=== PATIENT | male | born 2000 | race Caucasian/White ===

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

== ENCOUNTER 2018-02-14 20:44 | Emergency (ER) | payer OTHER ==
--- OUTSIDE RECORDS SUMMARY | 2018-02-14 20:46 | XMS REPORT ---
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, disorder of MODERATE childhood with hyperactivity ANXIETY Active Edda Anxiety state, DISORDER, / Musa DHILLON unspecified UNSPECIFIED AUTISM Active Heavental SPECTRUM / Musa DHILLON DISORDER Medication List Medication Instructions Start Stop Generic NDC Status Provider Patient Date Date Name Instruction DEPAKOTE ER 1 By DIVALPROEX SODIUM [id number] Active Shetal Active 500 MG ORAL Mouth Vigil TABLET QHS EXTENDED RELEASE 24 HOUR CONCERTA 36 take 1 METHYLPHENIDATE 17988894202 Active Shetal Active MG ORAL By Mouth HCL Musa DHILLON TABLET daily EXTENDED RELEASE LEXAPRO 20 1 By ESCITALOPRAM [id number] Active Shetal Active MG ORAL Mouth OXALATE Musa DHILLON TABLET daily SEROQUEL take 1 QUETIAPINE 21249463225 Active Shetal Active 100 MG ORAL tab BID FUMARATE Vigil MD TABLET DEPAKOTE 1 tab By DEPAKOTE DIVALPROEX SODIUM Inactive ER 500 MG Mouth daily ER 500 MG ORAL and 1 tab ORAL TABLET QHS TABLET EXTENDED EXTENDED RELEASE RELEASE 24 HOUR 24 HOUR RITALIN 1 By Mouth RITALIN [id number] METHYLPHENIDATE Inactive 20 MG Qafternoon 20 MG HCL ORAL ORAL TABLET TABLET INTUNIV 3 1 By Mouth INTUNIV 3 GUANFACINE HCL Inactive MG ORAL daily MG ORAL TABLET TABLET EXTENDED EXTENDED RELEASE RELEASE 24 HOUR 24 HOUR VYVANSE 1 By Mouth VYVANSE LISDEXAMFETAMINE Inactive 60 MG daily 60 MG DIMESYLATE ORAL ORAL CAPSULE CAPSULE DEPAKOTE 1 tab By DIVALPROEX [id number] No Shetal Active ER 500 MG Mouth SODIUM Longer Musa DHILLON ORAL daily Active TABLET and 1 EXTENDED tab QHS RELEASE 24 HOUR RITALIN 1 By METHYLPHENID [id number] No Shetal Active 20 MG Mouth ATE HCL Longer Musa DHILLON ORAL Qafterno Active TABLET on INTUNIV 3 1 By GUANFACINE [id number] No Shetal Active MG ORAL Mouth HCL Longer Vigil MD TABLET daily Active EXTENDED RELEASE 24 HOUR VYVANSE 1 By LISDEXAMFETA [id number] No Shetal Active 60 MG Mouth MINE Longer Musa DHILLON ORAL daily DIMESYLATE Active CAPSULE Vital Signs Date Name Value Unit Range Description blood pressure, diastolic 78 mm[Hg] BP gregory blood pressure, systolic 122 mm[Hg] BP sys height E&M 68 [in_us] Bdy height pulse rate E&M 90 /min Heart rate weight E&M 135 [lb_av] Weight Measured blood pressure, diastolic 76 mm[Hg] BP gregory blood pressure, systolic 114 mm[Hg] BP sys height E&M 68 [in_us] Bdy height pulse rate E&M 76 /min Heart rate weight E&M 131 [lb_av] Weight Measured blood pressure, diastolic 70 mm[Hg] BP gregory blood pressure, systolic 114 mm[Hg] BP sys height E&M 68 [in_us] Bdy height pulse rate E&M 78 /min Heart rate weight E&M 133 [lb_av] Weight Measured blood pressure, diastolic 70 mm[Hg] BP gregory [...] rate weight E&M 155.60 [lb_av] Weight Measured Diagnostic Results Date Name Value Unit Range Description Lab Report: CBC With Differential/Platelet, Comp. Metabolic Panel (14), ... - Hematology hematocrit, blood 36.0 % 37.5-51.0 Lab Report: CBC With Differential/Platelet, Comp. Metabolic Panel (14), ... - Chemistry sodium, serum 142 mmol/L 134-144 Lab Report: CBC With Differential/Platelet, Comp. Metabolic Panel (14), ... - Hematology neutrophils as percent of blood leukocytes 43 % basophils as percent of blood leukocytes 1 % Lab Report: CBC With Differential/Platelet, Comp. Metabolic Panel (14), ... - Chemistry very low density lipoproteins 13 mg/dL 5-40 carbon dioxide, venous blood 27 mmol/L 18-29 chloride, serum 102 mmol/L 97-108 triglyceride, serum, fasting 64 mg/dL 0-89 calcium, serum 9.0 mg/dL 8.9-10.4 urea nitrogen, blood 16 mg/dL 5-18 alanine aminotransferase (SGPT), serum 14 U/L 0-30 Lab Report: CBC With Differential/Platelet, Comp. Metabolic Panel (14), ... - Hematology mean corpuscular hemoglobin, RBC 28.0 pg 26.6-33.0 mean corpuscular hemoglobin concentration, RBC 33.9 G/DL % 31.5- 35.7 Lab Report: CBC With Differential/Platelet, Comp. Metabolic Panel (14), ... - Chemistry protein, total, serum 6.7 g/dL 6.0-8.5 alkaline phosphatase, serum 177 U/L 61-146 Lab Report: CBC With Differential/Platelet, Comp. Metabolic Panel (14), ... - Hematology erythrocyte (RBC) count 4.35 X10E6/UL 10*6/mm3 4.14-5.80 hemoglobin, blood 12.2 g/dL 12.6-17.7 Lab Report: CBC With Differential/Platelet, Comp. Metabolic Panel (14), ... - Chemistry Absolute Neutrophils 1.8 X10E3/UL 10*3/uL 1.4-7.0 LDL cholesterol, serum 55 mg/dL 0-109 urea nitrogen/creatinine ratio, serum 21 9-27 Lab Report: CBC With Differential/Platelet, Comp. Metabolic Panel (14), ... - Hematology lymphocytes as percent of blood leukocytes 41 % mean corpuscular volume, RBC 83 fL 79-97 Lab Report: CBC With Differential/Platelet, Comp. Metabolic Panel (14), ... - Chemistry HDL cholesterol, serum 64 mg/dL >39 Lab Report: CBC With Differential/Platelet, Comp. Metabolic Panel (14), ... - Hematology basophil count, absolute 0.1 x10E3/uL 0.0-0.3 monocytes as percent of blood leukocytes 13 % Lab Report: CBC With Differential/Platelet, Comp. Metabolic Panel (14), ... - Chemistry globulin, serum 2.4 1.5-4.5 creatinine, serum 0.75 mg/dL 0.76-1.27 albumin/globulin ratio, serum 1.8 1.1-2.5 cholesterol, serum 132 mg/dL 216-677 3755/10/03 bilirubin, serum, total 0.3 mg/dL 0.0-1.2 Lab Report: CBC With Differential/Platelet, Comp. Metabolic Panel (14), ... - Hematology Eosinophil Absolute Count 0.1 X10E3/UL 10*3/uL 0.0-0.4 eosinophils as percent of blood leukocytes 2 % Lab Report: CBC With Differential/Platelet, Comp. Metabolic Panel (14), ... - Chemistry blood glucose, random 80 mg/dL 65-99 aspartate aminotransferase (SGOT), serum 20 U/L 0-40 Lab Report: CBC With Differential/Platelet, Comp. Metabolic Panel (14), ... - Hematology red blood cell distribution width 14.3 % 12.3-15.4 leukocyte count, blood 4.2 X10E3/UL 10*3/mm3 3.4-10.8 Lab Report: CBC With Differential/Platelet, Comp. Metabolic Panel (14), ... - Chemistry potassium, serum 4.3 mmol/L 3.5-5.2 Lab Report: CBC With Differential/Platelet, Comp. Metabolic Panel (14), ... - Hematology monocyte count, blood, automated 0.5 X10E3/UL 10*3/uL 0.1-0.9 Lab Report: CBC With Differential/Platelet, Comp. Metabolic Panel (14), ... - Chemistry immature granulocytes, percentage of total cells, blood 0 % albumin, serum 4.3 g/dL 3.5-5.5 Lab Report: CBC With Differential/Platelet, Comp. Metabolic Panel (14), ... - Hematology platelet count 145 X10E3/UL 10*3/mm3 648-369 5152/10/03 lymphocyte count, blood, automated 1.7 X10E3/UL 10*3/mm3 0.7- 3.1 Lab Report: CBC With Differential/Platelet, Comp. Metabolic Panel (14), ... 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 Problem - 88377 Health Est Patient Detailed Edda Vigil MD CPT-63918 [facility] 07:57:10 CDT - 92214 Health Est Patient Detailed Edda Vigil MD CPT-83297 [facility] 16:19:08 CDT - 28042 Health Est Patient Detailed Edda Vigil MD CPT-92498 [facility] 07:26:45 CDT - 43056 Health Est Patient Exp Edda Vigil MD CPT-23512 [facility] 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 Problem - 90828 Health Est Patient Exp Edda Vigil MD CPT-56851 [facility] 15:47:22 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 Problem - 46861 Health Est Patient Exp Edda Vigil MD CPT-38452 [facility] 12:17:41 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 Problem - 62124 Health Est Patient Exp Edda Vigil MD CPT-06780 [facility] 22:23:36 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 Problem - 64979 Health Est Patient Detailed Edda Vigil MD CPT-67494 [facility] 09:37:59 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 - 40599 Health Est Patient Detailed Edda Vigil MD CPT-28597 [facility] 10:01:54 CDT - 42164 Health Est Patient Detailed Edda Vigil MD CPT-70488 [facility] 12:21:40 CDT - 57151 Health Est Patient Detailed Edda Vigil MD CPT-65344 [facility] 23:34:34 CDT - 48672 Health Est Patient Detailed Edda Vigil MD CPT-35340 [facility] 00:12:02 CDT - 45735 Health Est Patient Detailed Edda Vigil MD CPT-53994 [facility] 10:34:46 CDT - 00589 Health Est Patient Detailed Edda Vigil MD CPT-33682 [facility] 11:55:57 [facility] - [address] Health Procedures Code Procedure Name Date Entry Date Standard Description CPT-49584 Psychotherapy with E/M 30 (16-37) min - 05813(with 16:19:08 CDT patient and/or family member) CPT-86463 Diagnostic evaluation with medical - 46991 16:27:03 CDT
--- OUTSIDE RECORDS SUMMARY | 2018-02-14 20:46 | XMS REPORT | Clinical Summary ---
:2000 Author Organization [facility] Address [address] [place] [address] Care Team Providers Name Role Phone Cody Feliciano MD Primary Care Provider Allergies No Known Allergies Medications Medication Sig Dispensed Refills Start Date End Date Status divalproex (DEPAKOTE) 500 Take 500 mg by 0 Active MG EC tablet mouth 2 (two) times a day. 2 tablets (1000 mg) in morning and 1 tablet (500 mg) pm lisdexamfetamine Take 60 mg by 0 Active (VYVANSE) 60 MG capsule mouth every morning. escitalopram (LEXAPRO) 20 Take 20 mg by 0 Active MG tablet mouth daily. QUEtiapine (SEROquel) 100 Take 100 mg by 0 Active MG tablet mouth 2 (two) times a day. Takes 150 mg in the morning and 200 mg at bedtime Active Problems No known active problems Social History Tobacco Use Types Packs/Day Years Used Date Never Smoker Smokeless Tobacco: Never Used Alcohol Use Drinks/Week oz/Week Comments No Sex Assigned at Date Recorded Not on file Job Start Date Occupation Industry Not on file Not on file Not on file Travel History Travel Start Travel End No recent travel history available. Last Filed Vital Signs Not on file Plan of Treatment Health Maintenance Due Date Last Done Comments MMR VACCINES (1 of 1 - Standard 09/15/1999 series) VARICELLA VACCINES (1 of 2 - 2-dose 09/15/2011 adolescent series) MENINGOCOCCAL VACCINE (1 - 2-dose 2014 series) INFLUENZA VACCINE 11/01/2017 HEPATITIS B VACCINES Aged Out No longer eligible based on patient's age to complete this topic IPV VACCINES Aged Out No longer eligible based on patient's age to complete this topic Results Not on fileafter 02/13/2017 Insurance Payer Benefit Plan / Group Subscriber ID Type Phone Address MEDICAID MEDICAID xxxxxxxxx Medicaid Advance Directives Patient has advance care planning documents on file. For more information, please contact:Dean [id number] [place] [address]
--- OUTSIDE RECORDS SUMMARY | 2018-02-14 20:46 | XMS REPORT | Clinical Summary ---
:2000 Author Organization [facility] Address [address] [place] [address] Care Team Providers Name Role Phone Cody Feliciano MD Primary Care Provider Unavailable Allergies No Known Allergies Medications Medication Sig Dispensed Refills Start Date End Date Status lisdexamfetamine (VYVANSE) Take 60 mg by 0 Active 60 MG capsule mouth every morning. QUEtiapine (SEROQUEL) 200 Take 200 mg by 0 Active MG tablet mouth nightly. escitalopram oxalate Take 20 mg by 0 Active (LEXAPRO) 20 MG tablet mouth. guanFACINE (INTUNIV ER) 4 Take by mouth. 0 Active mg Tb24 QUEtiapine (SEROQUEL) 25 Take 25 mg by 0 Active MG tablet mouth. Active Problems Not on file Social History Tobacco Use Types Packs/Day Years Used Date Never Smoker Alcohol Use Drinks/Week oz/Week Comments No Sex Assigned at Date Recorded Not on file Job Start Date Occupation Industry Not on file Not on file Not on file Travel History Travel Start Travel End No recent travel history available. Last Filed Vital Signs Not on file Plan of Treatment Not on file Results Not on fileafter 02/13/2017 Insurance Payer Benefit Plan / Group Subscriber ID Type Phone Address MEDICAID MEDICAID [place] xxxxxxxxx Medicaid
--- NOTE | 2018-02-14 23:52 | ER ---
Nurse's Notes [facility] Name: Sean Hoover Age: 17 yrs Sex: Male : 2000 Arrival Date: 02/14/2018 Time: 20:54 Bed 7 Private MD: None, None Diagnosis: Unspecified injury of head Presentation: 02/14 21:02 Presenting complaint: Patient states: Reports being hit in right side of head with tire aj iron while at work. 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 Denies LOC. Report headache. Care prior to arrival: None. Mechanism of Injury: blunt trauma. Trauma event details: Injury occurred in the [facility], Injury occurred: in a public building. Injury occurred: February 12, 2018. 21:02 Acuity: ROCKY 4 aj 21:02 Method Of Arrival: EMS: [facility] aj 23:47 Transition of care: patient was not received from another setting of care. Onset of tl2 symptoms was February 13, 2018. Risk Assessment: Do you want to hurt yourself or someone else? Patient reports no desire to harm self or others. Initial Sepsis Screen: Does the patient meet any 2 criteria? No. Patient's initial sepsis screen is negative. Does the patient have a suspected source of infection? No. Patient's initial sepsis screen is negative. Trauma Activation: Not Applicable Physician: ED Physician; Name: ; Notified At: ; Arrived At: Physician: General Surgeon; Name: ; Notified At: ; Arrived At: Physician: Radiology; Name: ; Notified At: ; Arrived At: Physician: Respiratory; Name: ; Notified At: ; Arrived At: Physician: Lab; Name: ; Notified At: ; Arrived At: Historical: - Allergies: 21:04 No Known Allergies; aj - Home Meds: 21:04 Concerta 72 mg Oral tr24 1 tab once daily [Active]; Depakote 500 mg Oral TbEC 1 tab aj once daily [Active]; Lexapro 20 mg Oral tab 1 tab once daily [Active]; Seroquel 100 mg Oral tab 1 tab nightly [Active]; - PMHx: 21:04 ADD/ADHD; Anxiety; Autism; mood disorder; aj - PSHx: 21:04 Appendectomy; aj - Immunization history: Last tetanus immunization: unknown. - Social history:: Smoking status: Patient/guardian denies using tobacco. - Ebola Screening: : Patient negative for fever greater than or equal to 101.5 degrees Fahrenheit, and additional compatible Ebola Virus Disease symptoms Patient denies exposure to infectious person Patient denies travel to an Ebola-affected area in the 21 days before illness onset No symptoms or risks identified at this time. Screenin:41 Abuse screen: Denies threats or abuse. Nutritional screening: No deficits noted. tl2 Tuberculosis screening: No symptoms or risk factors identified. Fall Risk None identified. Primary Survey: 21:04 A: Airway: patent. Breathing/Chest: Respiratory pattern: regular, Respiratory effort: aj spontaneous, unlabored. Circulation: Skin color: pink, Skin temperature: warm, dry. Disability Alert. Assessment: 21:02 General: Appears in no apparent distress. comfortable, Behavior is calm, cooperative, aj appropriate for age. Pain: Complains of pain in right frontal area. Neuro: Level of Consciousness is awake, alert, obeys commands, Oriented to person, place, time, situation, Appropriate for age Reports headache. Respiratory: Airway is patent Respiratory effort is even, unlabored, Respiratory pattern is regular, symmetrical. Derm: Skin is intact, is healthy with good turgor, Skin is pink, warm \T\ dry. normal. 23:41 General: Appears in no apparent distress. comfortable, Behavior is calm, cooperative, tl2 appropriate for age, drowsy. Pain: Complains of pain in right frontal area. Neuro: Level of Consciousness is awake, alert, obeys commands, Oriented to person, place, time, situation. Respiratory: Airway is patent Respiratory effort is even, unlabored, Respiratory pattern is regular, symmetrical. GI: No signs and/or symptoms were reported involving the gastrointestinal system. : No signs and/or symptoms were reported regarding the genitourinary system. Derm: Skin is pink, warm \T\ dry. 02/15 00:02 Reassessment: [id number]. tl2 00:18 Reassessment: Patient appears in no apparent distress at this time. Patient and/or tl2 family updated on plan of care and expected duration. Pain level reassessed. Patient is alert, oriented x 3, equal unlabored respirations, skin warm/dry/pink. Pt verbalized understanding of discharge instructions, need for follow up. Pt AOx3 and ambulatory out of ER. Vital Signs: 02/14 21:04 BP 112 / 71; Pulse 62; Resp 19; Temp 99.1; Pulse Ox 100% on R/A; Weight 58.97 kg; aj Height 5 ft. 9 in. (175.26 cm); 23:41 BP 105 / 65; Pulse 56; Resp 18; Pulse Ox 100% on R/A; tl2 21:04 Body Mass Index 19.20 (58.97 kg, 175.26 cm) aj Henry Coma Score: 21:04 Eye Response: spontaneous(4). Verbal Response: oriented(5). Motor Response: obeys aj commands(6). Total: 15. 23:56 Eye Response: spontaneous(4). Verbal Response: oriented(5). Motor Response: obeys snw commands(6). Total: 15. 23:57 Eye Response: spontaneous(4). Verbal Response: oriented(5). Motor Response: obeys snw commands(6). Total: 15. Trauma Score (Adult): 21:04 Eye Response: spontaneous(1); Verbal Response: oriented(1); Motor Response: obeys aj commands(2); Systolic BP: > 89 mm Hg(4); Respiratory Rate: 10 to 29 per min(4); Herndon Score: 15; Trauma Score: 12 ED Course: 20:54 Patient arrived in ED. mr 20:54 None, None is Private Physician. mr 21:03 Triage completed. aj 21:05 Arm band placed on right wrist. Patient placed in waiting room, Patient notified of wait time. 21:20 [facility] Sykes [facility]C [facility] snw 21:20 Eliel Calvo MD is Attending Physician. snw 22:13 CT Head C Spine In Process Unspecified. EDMS 23:18 Devi Kirkland, PANFILO is Primary Nurse. aa1 23:41 Patient has correct armband on for positive identification. Bed in low position. Call tl2 light in reach. Side rails up X 1. 23:41 No provider procedures requiring assistance completed. tl2 23:46 Thermoregulation: warm blanket given to patient. tl2 02/15 00:18 Patient did not have IV access during this emergency room visit. tl2 Administered Medications: No medications were administered Outcome: 02/14 23:51 Discharge ordered by . snw 02/15 00:18 Discharged to home ambulatory. tl2 Condition: stable Discharge instructions given to patient, Instructed on discharge instructions, follow up and referral plans. Demonstrated understanding of instructions, follow-up care. 00:20 Patient left the ED. tl2 Signatures: Dispatcher [employer] Devi Corona RN Shawna Morrison RN Jayashree Walls, DRYWALL APPLICATOR-C DRYWALL APPLICATOR-Lyubov Sophia Hager Taylor, RN RN tl2
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
[2018-02-15 02:22] VITALS: TEMP 99.1; O2SAT 100
[2018-02-15 02:23] VITALS: BP 105/65
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
== END 2018-02-15 00:20 | disposition home or self-care (01) ==
LOC: ER 20:44
DX: S09.90XA Unspecified injury of head, initial encounter (principal); W22.8XXA Striking against or struck by other objects, initial encounter; Y93.9 Activity, unspecified; Y92.89 Other specified places as the place of occurrence of the external cause; F41.9 Anxiety disorder, unspecified; F90.9 Attention-deficit hyperactivity disorder, unspecified type; F39 Unspecified mood [affective] disorder
CPT/HCPCS: 70450; 72125; 99283

== ENCOUNTER 2018-06-23 17:56 | Emergency (ER) | payer OTHER ==
--- OUTSIDE RECORDS SUMMARY | 2018-06-23 17:59 | XMS REPORT | Clinical Summary ---
:2000 Author Organization [facility] Address [address] [place] [address] Care Team Providers Name Role Phone Cody [...] Health Maintenance Due Date Last Done Comments INFLUENZA VACCINE 11/01/2017 Results Not on fileafter 06/22/2017 Insurance Payer Benefit Plan / Group Subscriber ID Type Phone Address MEDICAID MEDICAID xxxxxxxxx Medicaid Advance Directives Patient has advance care planning documents on file. For more information, please contact:[address] [address]
--- OUTSIDE RECORDS SUMMARY | 2018-06-23 17:59 | XMS REPORT ---
:2000 Author Organization [facility] Address [address] [place] [phone] Phone Allergies, Adverse Reactions, Alerts Allergy Name [...] Instruction DEPAKOTE ER 1 By DIVALPROEX SODIUM [id number] Active Shetal Active 500 MG ORAL Mouth Vigil TABLET QHS EXTENDED RELEASE 24 HOUR CONCERTA 36 take 1 METHYLPHENIDATE 10366721968 Active Shetal Active MG ORAL By Mouth HCL Musa DHILLON TABLET daily EXTENDED RELEASE LEXAPRO 20 1 By ESCITALOPRAM [id number] Active Shetal Active MG ORAL Mouth OXALATE Musa DHILLON TABLET daily SEROQUEL take 1 QUETIAPINE 71046670815 Active Shetal Active 100 MG ORAL tab BID FUMARATE Vigil MD TABLET DEPAKOTE 1 tab By DEPAKOTE DIVALPROEX SODIUM Inactive ER 500 MG Mouth daily ER 500 MG ORAL and 1 tab ORAL TABLET QHS TABLET EXTENDED EXTENDED RELEASE RELEASE 24 HOUR 24 HOUR RITALIN 1 By Mouth RITALIN [id number] METHYLPHENIDATE Inactive 20 MG Qafternoon 20 MG HCL ORAL ORAL TABLET TABLET INTUNIV 3 1 By Mouth INTUNIV 3 GUANFACINE HCL Inactive MG ORAL daily MG ORAL TABLET TABLET EXTENDED EXTENDED RELEASE RELEASE 24 HOUR 24 HOUR VYVANSE 1 By Mouth VYVANSE LISDEXAMFETAMINE Inactive 60 MG daily 60 MG DIMESYLATE ORAL ORAL CAPSULE CAPSULE DEPAKOTE 1 tab By DIVALPROEX [id number] No Shetal Active ER 500 MG Mouth SODIUM Longer Musa DHILLON ORAL daily Active TABLET and 1 EXTENDED tab QHS RELEASE 24 HOUR RITALIN 1 By METHYLPHENID [id number] No Shetal Active 20 MG Mouth ATE HCL Longer Musa DHILLON ORAL Qafterno Active TABLET on INTUNIV 3 1 By GUANFACINE [id number] No Shetal Active MG ORAL Mouth HCL Longer Vigil MD TABLET daily Active EXTENDED RELEASE 24 HOUR VYVANSE 1 By LISDEXAMFETA [id number] No Shetal Active 60 MG Mouth MINE [...] rate weight E&M 138 [lb_av] Weight Measured Diagnostic Results Date Name [...] ... - Chemistry globulin, serum 2.4 1.5-4.5 albumin/globulin ratio, serum 1.8 1.1-2.5 creatinine, serum 0.75 mg/dL 0.76-1.27 cholesterol, serum 132 mg/dL [phone]/10/03 bilirubin, serum, total 0.3 mg/dL 0.0-1.2 Lab [...] Comp. Metabolic Panel (14), ... - Chemistry albumin, serum 4.3 g/dL 3.5-5.5 immature granulocytes, percentage of total cells, blood 0 % Lab Report: CBC With Differential/Platelet, Comp. Metabolic Panel (14), ... - Hematology platelet count 145 X10E3/UL 10*3/mm3 070-035 3529/10/03 lymphocyte count, blood, automated 1.7 X10E3/UL 10*3/mm3 0.7- 3.1 Lab Report: CBC With Differential/Platelet, Comp. Metabolic Panel (14), ... - Toxicology valproic acid, serum 110 ug/mL 50-100 Encounters Date Encounter Provider Code Facility Est Patient Exp Edda Vigil MD CPT-37263 [facility] 16:33:11 CDT Problem - 02244 Health Est Patient Detailed Edda Vigil MD CPT-77193 [facility] 11:11:09 CDT - 55043 Health Est Patient Detailed Edda Vigil MD CPT-69974 [facility] 05:48:16 CDT - 73432 Health Est Patient Exp Edda Vigil MD CPT-02723 [facility] 10:34:46 ACCESS ANALYST Problem - 55998 Health Est Patient Detailed Edda Vigil MD CPT-22626 [facility] 07:57:10 CDT - 72511 Health Est Patient Detailed Edda Vigil MD CPT-37095 [facility] 16:19:08 CDT - 66572 Health Est Patient Detailed Edda Vigil MD CPT-56822 [facility] 07:26:45 CDT - 80973 Health Est Patient Exp Edda Vigil MD CPT-16052 [facility] 06:49:36 ACCESS ANALYST Problem - 00746 Health Est Patient Exp Edda Vigil MD CPT-02070 [facility] 15:47:22 ACCESS ANALYST Problem - 64924 Health Est Patient Exp Edda Viigl MD CPT-45120 [facility] 12:17:41 ACCESS ANALYST Problem - 52658 [facility] Est Patient Exp Edda Vigil MD CPT-16399 [facility] 22:23:36 ACCESS ANALYST Problem - 57721 [facility] Est Patient Detailed Edda Vigil MD CPT-47913 [facility] 09:37:59 ACCESS ANALYST - 44220 [facility] Est Patient Detailed Edda Vigil MD CPT-99079 [facility] 10:01:54 CDT - 83877 [facility] Est Patient Detailed Edda Vigil MD CPT-04173 [facility] 12:21:40 CDT - 93554 [facility] Est Patient Detailed Edda Vigil MD CPT-91780 [facility] 23:34:34 CDT - 89644 [facility] Est Patient Detailed Edda Vigil MD CPT-63083 [facility] 00:12:02 CDT - 21103 [facility] Est Patient Detailed Edda Vigil MD CPT-32571 [facility] 10:34:46 CDT - 52410 [facility] Est Patient Detailed Edda Vigil MD CPT-04896 [facility] 11:55:57 CDT - 15061 Health Procedures Code Procedure Name Date Entry Date Standard Description CPT-52490 Psychotherapy with E/M 30 (16-37) min - 26416(with 16:19:08 CDT patient and/or family member) CPT-86419 Diagnostic evaluation with [facility] - 29058 16:27:03 CDT
--- OUTSIDE RECORDS SUMMARY | 2018-06-23 17:59 | XMS REPORT | Clinical Summary ---
:2000 Author Organization [facility] Address [address] [place] [address] Care Team Providers Name Role Phone Cody [...] Not on file Results Not on fileafter 06/22/2017 Insurance Payer Benefit Plan / Group Subscriber ID Type Phone Address MEDICAID MEDICAID [place] xxxxxxxxx Medicaid
[2018-06-23] MEDS ORDERED: DOXYCYCLINE 100 MG CAP PO ONE (18:57)
--- NOTE | 2018-06-23 19:27 | EDPHYS ---
Physician Documentation [facility] Name: Sean Hoover Age: 17 yrs Sex: Male : 2000 Arrival Date: 06/23/2018 Time: 17:59 Bed 23 Private MD: ED Physician Eliel Calvo HPI: 06/23 18:43 This 17 yrs old Male presents to ER via Ambulatory with complaints of kb Laceration To Hand. 18:43 The patient has a laceration related to: falling into oyster bed occurred outdoors, and kb there are no complicating factors. The injury was accidental. The laceration(s) is(are) located on the lateral aspect of left thigh and Left first web space. Onset: The symptoms/episode began/occurred just prior to arrival. Associated signs and symptoms: The patient has no apparent associated signs or symptoms. The patient has not experienced similar symptoms in the past. The patient has not recently seen a physician. Historical: - Allergies: 18:09 No Known Allergies; la1 - PMHx: 18:09 ADD/ADHD; Anxiety; Autism; mood disorder; la1 - PSHx: 18:51 None; rv - Immunization history:: Adult Immunizations up to date. - Social history:: Smoking status: Patient/guardian denies using tobacco. - Ebola Screening: : No symptoms or risks identified at this time. ROS: 18:40 Constitutional: Negative for fever, chills, and weight loss, Cardiovascular: Negative kb for chest pain, palpitations, and edema, Respiratory: Negative for shortness of breath, cough, wheezing, and pleuritic chest pain, Abdomen/GI: Negative for abdominal pain, nausea, vomiting, diarrhea, and constipation, MS/Extremity: Negative for injury and deformity, Neuro: Negative for headache, weakness, numbness, tingling, and seizure. 18:40 Skin: Positive for laceration(s), of the Left first web space and lateral aspect of left thigh. Exam: 18:42 Constitutional: This is a well developed, well nourished patient who is awake, alert, kb and in no acute distress. Head/Face: Normocephalic, atraumatic. Chest/axilla: Normal chest wall appearance and motion. Nontender with no deformity. No lesions are appreciated. Cardiovascular: Regular rate and rhythm with a normal S1 and S2. No gallops, murmurs, or rubs. Normal PMI, no JVD. No pulse deficits. Respiratory: Lungs have equal breath sounds bilaterally, clear to auscultation and percussion. No rales, rhonchi or wheezes noted. No increased work of breathing, no retractions or nasal flaring. Abdomen/GI: Soft, non-tender, with normal bowel sounds. No distension or tympany. No guarding or rebound. No evidence of tenderness throughout. MS/ Extremity: Pulses equal, no cyanosis. Neurovascular intact. Full, normal range of motion. Neuro: Awake and alert, GCS 15, oriented to person, place, time, and situation. Cranial nerves II-XII grossly intact. Motor strength 5/5 in all extremities. Sensory grossly intact. Cerebellar exam normal. Normal gait. 18:42 Skin: injury, abrasion(s), moderate sized abrasion noted, of the lateral aspect of left thigh, laceration(s), the wound is approximately 3 cm(s), of the Left first web space, that can be described as clean, no foreign body, linear, without bleeding. Vital Signs: 18:10 BP 116 / 75; Pulse 70; Resp 18; Temp 97.5; Pulse Ox 100% on R/A; Weight 68.04 kg; la1 Height 6 ft. 0 in. (182.88 cm); 18:10 Body Mass Index 20.34 (68.04 kg, 182.88 cm) la1 Laceration: 19:24 Wound Repair of 3cm ( 1.2in ) subcutaneous laceration to Left first web space. Linear kb shaped.. Distal neuro/vascular/tendon intact. Anesthesia: Wound infiltrated with 3 mls of 1% lidocaine. Wound prep: Extensive cleansing with hibiclenz by ne, Wound irrigation with saline by ne. Skin closed with 5 5-0 Prolene using interrupted sutures and sterile technique. Dressed with Neosporin, 4x4's. Patient tolerated well. MDM: 18:34 Patient medically screened. kb 18:42 Data reviewed: vital signs, nurses notes. Data interpreted: Pulse oximetry: on room air kb is 100 %. Interpretation: normal. 19:24 Counseling: I had a detailed discussion with the patient and/or guardian regarding: the kb historical points, exam findings, and any diagnostic results supporting the discharge/admit diagnosis, the need for outpatient follow up, a family practitioner, to return to the emergency department if symptoms worsen or persist or if there are any questions or concerns that arise at home. 06/23 18:37 Order name: Prolene, Sutures; Complete Time: 18:47 kb 06/23 18:37 Order name: Dressing - Wound; Complete Time: 18:47 kb 06/23 18:37 Order name: Gloves, Sterile; Complete Time: 18:47 kb 06/23 18:37 Order name: Setup Suture Tray; Complete Time: 18:47 kb Administered Medications: 18:40 Drug: Lidocaine (1 %) 1 vials Volume: 5 ml; Route: Infiltration; ss 18:47 Drug: Doxycycline 100 mg Route: PO; rv 19:20 Follow up: Response: No adverse reaction rv Disposition: 06/23/18 19:26 Discharged to Home. Impression: Laceration without foreign body of left hand, Abrasion of lower leg. - Condition is Stable. - Discharge Instructions: Laceration Care, Adult, [id number]. - Prescriptions for Doxycycline Hyclate 100 mg Oral Tablet - take 1 tablet by ORAL route every 12 hours; 20 tablet. - Medication Reconciliation Form, Thank You Letter, Antibiotic Education, Prescription Opioid Use form. - Follow up: Emergency Department; When: As needed; Reason: Worsening of condition. Follow up: Private Physician; When: 2 - 3 days; Reason: Recheck today's complaints, Continuance of care, Re-evaluation by your physician. - Notes: Have sutures removed in 10-14 days Addendum: 06/27/2018 21:54 Co-signature as Attending Physician, Eliel Calvo MD. g s Signatures: Clover Rueda, ASSISTANT FIELD HOCKEY COACH-C SAWYER-Tracy Swanson RN RN ss Attema, Lee RN RN la1 Eliel Calvo MD MD gs Vicente, Ronaldo, RN RN rv Corrections: (The following items were deleted from the chart) 06/23 19:24 18:42 Skin: injury, abrasion(s), moderate sized abrasion noted, of the lateral aspect kb of left thigh, laceration(s), the wound is approximately 2 cm(s), of the Left first web space, that can be described as clean, no foreign body, linear, without bleeding, kb 19:35 19:26 06/23/2018 19:26 Discharged to Home. Impression: Laceration without foreign body rv of left hand; Abrasion of lower leg. Condition is Stable. Forms are Medication Reconciliation Form, Thank You Letter, Antibiotic Education, Prescription Opioid Use. Follow up: Emergency Department; When: As needed; Reason: Worsening of condition. Follow up: Private Physician; When: 2 - 3 days; Reason: Recheck today's complaints, Continuance of care, Re-evaluation by your physician. kb
--- NOTE | 2018-06-23 19:27 | ER ---
Nurse's Notes [facility] Name: Sean Hoover Age: 17 yrs Sex: Male : 2000 Arrival Date: 06/23/2018 Time: 17:59 Bed 23 [facility] MD: Diagnosis: Laceration without foreign body of left hand;Abrasion of lower leg Presentation: 06/23 18:08 Presenting complaint: Patient states: I fell on to some oysters in to the salt water la1 while I was trying get a bobber. Transition of care: patient was not received from another setting of care. Complicating Factors: There are no complicating factors for this patient. Onset of symptoms was June 23, 2018. Risk Assessment: Do you want to hurt yourself or someone else? Patient reports no desire to harm self or others. Initial Sepsis Screen: Does the patient meet any 2 criteria? No. Patient's initial sepsis screen is negative. Does the patient have a suspected source of infection? No. Patient's initial sepsis screen is negative. Care prior to arrival: None. 18:08 Method Of Arrival: Ambulatory la1 18:08 Acuity: ROCKY 4 la1 Historical: - Allergies: 18:09 No Known Allergies; la1 - PMHx: 18:09 ADD/ADHD; Anxiety; Autism; mood disorder; la1 - PSHx: 18:51 None; rv - Immunization history:: Adult Immunizations up to date. - Social history:: Smoking status: Patient/guardian denies using tobacco. - Ebola Screening: : No symptoms or risks identified at this time. Screenin:51 Abuse screen: Denies threats or abuse. Denies injuries from another. Nutritional rv screening: No deficits noted. Tuberculosis screening: No symptoms or risk factors identified. Fall Risk None identified. Assessment: 18:47 General: Appears in no apparent distress. comfortable, Behavior is calm, cooperative. rv Pain: Complains of pain in left hand. Neuro: Level of Consciousness is awake, alert, obeys commands, Oriented to person, place, time, situation. Cardiovascular: Capillary refill < 3 seconds. Respiratory: Airway is patent. GI: No signs and/or symptoms were reported involving the gastrointestinal system. : No signs and/or symptoms were reported regarding the genitourinary system. EENT: No signs and/or symptoms were reported regarding the EENT system. Derm: Wound noted Left first web space. Musculoskeletal: Reports pain in left hand. Injury Description: Laceration sustained to Left first web space is clean, jagged, 2.6 to 7.5 cm long, not bleeding. Vital Signs: 18:10 BP 116 / 75; Pulse 70; Resp 18; Temp 97.5; Pulse Ox 100% on R/A; Weight 68.04 kg; la1 Height 6 ft. 0 in. (182.88 cm); 18:10 Body Mass Index 20.34 (68.04 kg, 182.88 cm) la1 ED Course: 17:59 Patient arrived in ED. mr 18:09 Triage completed. la1 18:09 Arm band placed on left wrist. la1 18:34 [facility]C [facility] kb 18:34 Eliel Calvo MD is Attending Physician. kb 18:50 Patient did not have IV access during this emergency room visit. Wound care: to rv laceration located on Left first web space was cleaned with Hibiclens, irrigated with normal saline, dressed with 4X4s, Patient tolerated well. 18:51 Patient has correct armband on for positive identification. Bed in low position. Call rv light in reach. Side rails up X 1. Adult w/ patient. Pulse ox on. NIBP on. 19:20 Assist provider with chest tube insertion Assist provider with laceration repair on rv Left first web space that was between 2.6 to 7.5 cm using sutures. Set up tray. Performed by Clover BARKER Dressed with 4X4s, Patient tolerated well. Administered Medications: 18:40 Drug: Lidocaine (1 %) 1 vials Volume: 5 ml; Route: Infiltration; ss 18:47 Drug: Doxycycline 100 mg Route: PO; rv 19:20 Follow up: Response: No adverse reaction rv Outcome: 19:21 Discharged to home ambulatory. rv 19:21 Condition: good 19:26 Discharge ordered by . kb 19:35 Discharge instructions given to patient, family, Instructed on discharge instructions, rv follow up and referral plans. medication usage, Demonstrated understanding of instructions, follow-up care, medications, Prescriptions given X 1. 19:35 Patient left the ED. rv Signatures: Clover Rueda FNP-C FNP-Ckb Sophia Hager Shelby, RN RN ss Juan R Montoya, RN RN la1 Christian, Richard, RN RN rv
[2018-06-23 20:13] VITALS: BP 116/75; TEMP 97.5; O2SAT 100
== END 2018-06-23 19:35 | disposition home or self-care (01) ==
LOC: ER 17:56
PROC: 0JQK0ZZ Repair Left Hand Subcutaneous Tissue and Fascia, Open Approach (ICD-10-PCS; principal; 2018-06-23)
DX: S61.412A Laceration without foreign body of left hand, initial encounter (principal); S80.812A Abrasion, left lower leg, initial encounter; W18.39XA Other fall on same level, initial encounter; Y93.89 Activity, other specified; Y92.89 Other specified places as the place of occurrence of the external cause
CPT/HCPCS: 99285

== ENCOUNTER 2019-11-24 09:23 | Emergency (ER) | payer OTHER, SELFPAY ==
--- OUTSIDE RECORDS SUMMARY | 2019-11-24 09:25 | XMS REPORT | Clinical Summary ---
:2000 Author Organization [facility] Address [address] [place] [address] Care Team Providers Name Role Phone Cody Feliciano MD Primary Care Provider Unavailabl e Allergies No Known Allergies Medications Medication Sig [...] Not on file Results Not on fileafter 11/23/2018 Insurance Payer Benefit Plan / Group Subscriber ID Type Phone [facility] MEDICAID MEDICAID OF [place] xxxxxxxxx Medicaid
--- OUTSIDE RECORDS SUMMARY | 2019-11-24 09:25 | XMS REPORT | Clinical Summary ---
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
--- OUTSIDE RECORDS SUMMARY | 2019-11-24 09:26 | XMS REPORT | Continuity of Care Document ---
:2000 Author Organization [facility] t Address [address] [place] [address] Care Team Providers Name Role Phone Braden DHILLON, H. Primary Care Physician Problems This patient has no known problems. Allergies, Adverse Reactions, Alerts This patient has no known allergies or adverse reactions. Social History Social Habit Start Date Stop Date Quantity Comments Source Sex Assigned At [facility] Alcohol intake 2015-12-22 2015-12-22 [facility] non-drinker of alcohol (finding) Smoking Status Start Date Stop Date Source Never smoker [facility] Medications Ordered Filled Start Stop Current Ordering Indication Dosage Frequency Signature Comments Components Source Medication Medication Date Date Medication? Clinician (SIG) Name Name divalproex Yes 500mg Q.5D Take 500 [place] (DEPAKOTE) 9-18 mg by Methodi 500 MG EC 03:04: mouth 2 st tablet 24 (two) times a day. 2 tablets (1000 mg) in morning and 1 tablet (500 mg) pm lisdexamfet Yes 60mg QD Take 60 mg [facility] amine 9-18 by mouth [facility]i (VYVANSE) 03:04: every st 60 MG 24 morning. capsule escitalopra Yes 20mg QD Take 20 mg Moran m (LEXAPRO) 9-18 by mouth Meth miryam 20 MG 03:04: daily. st tablet 24 QUEtiapine Yes 100mg Q.5D Take 100 [place] (SEROquel) 9-18 mg by [facility] 100 MG 03:04: mouth 2 st tablet 24 (two) times a day. Takes 150 mg in the morning and 200 mg at bedtime QUEtiapine Yes 25mg Take [address] (SEROQUEL) 8-20 by mouth. Luke s - 25 MG 12:32: Medical tablet 37 [place] escitalopra Yes 20mg Take [address] [facility] oxalate 8-20 by [facility] - (LEXAPRO) 12:32: Medical 20 MG 36 [place] tablet guanFACINE Yes Take by [facility] (INTUNIV 8-20 mouth. [facility] - ER) 4 mg 12:32: Medical Tb24 36 [place] lisdexamfet Yes 60mg QD Take [address] [facility] [address] amine 7-09 by mouth [facility] - (VYVANSE) 20:59: every Medical 60 MG 54 morning. [place] capsule QUEtiapine Yes 200mg QD Take [address] (SEROQUEL) 7-09 mg by [facility] - 200 MG 20:59: mouth Medical tablet 54 nightly. Center Procedures This patient has no known procedures. Plan of Care Planned Activity Planned Date Details Comments Source Future Scheduled 2020-01-02 INFLUENZA VACCINE Rhea Nguyen Test 00:00:00 [code = INFLUENZA VACCINE] Results This patient has no known results.
[2019-11-24] MEDS ORDERED: DOXYCYCLINE 100 MG CAP PO ONE (10:02)
[2019-11-24] MEDS ORDERED: SMZ./TMP. 800/160 MG TABLET ONE (10:02)
[2019-11-24] MEDS ORDERED: MUPIROCIN 2% OINT 22GM TUBE TOP ONE (10:03)
--- NOTE | 2019-11-24 10:49 | RAD REPORT ---
EXAM DESCRIPTION: RAD - Hand Right 3 View - 11/24/2019 10:29 am CLINICAL HISTORY: Right hand pain status post injury FINDINGS: No fracture or dislocation is seen. No radiopaque foreign body. No bony destructive lesion
--- NOTE | 2019-11-24 11:01 | EDPHYS ---
Physician Documentation [facility] Name: Sean Hoover Age: 19 yrs Sex: Male : 2000 Arrival Date: 11/24/2019 Time: 09:25 Bed 19 Private MD: SONAM Physician Samson Bullock HPI: 11/23 09:59 This 19 yrs old Male presents to ER via Ambulatory with complaints of vinicio Abscess, Wound Check. 09:59 The patient presents with an abscess of the dorsal aspect of distal phalanx of right vinicio thumb and right arm, The patient presents with cellulitis of the dorsal aspect of distal phalanx of right thumb. Description: The affected area is small, confluent, erythematous, fluctuant. Onset: The symptoms/episode began/occurred 2 day(s) ago. Associated signs and symptoms: The patient has no apparent associated signs or symptoms. Severity of symptoms: At their worst the symptoms were mild, yesterday. The patient has not experienced similar symptoms in the past, also wound right anterior tibia/villanueva. Historical: - Allergies: 09:38 No Known Allergies; aa5 - PMHx: 09:38 ADD/ADHD; Anxiety; Autism; mood disorder; aa5 - PSHx: 09:38 None; aa5 - Immunization history:: Last tetanus immunization: < 5 years ago. - Social history:: Smoking status: Patient denies any tobacco usage or history of. - Family history:: not pertinent. ROS: 09:59 Constitutional: Negative for fever, chills, and weight loss, Eyes: Negative for injury, vinicio pain, redness, and discharge, ENT: Negative for injury, pain, and discharge, Neck: Negative for injury, pain, and swelling, Cardiovascular: Negative for chest pain, palpitations, and edema, Respiratory: Negative for shortness of breath, cough, wheezing, and pleuritic chest pain, Abdomen/GI: Negative for abdominal pain, nausea, vomiting, diarrhea, and constipation, Back: Negative for injury and pain, : Negative for injury, bleeding, discharge, and swelling, Skin: Negative for injury, rash, and discoloration, Neuro: Negative for headache, weakness, numbness, tingling, and seizure, Psych: Negative for depression, anxiety, suicide ideation, homicidal ideation, and hallucinations, Allergy/Immunology: Negative for hives, rash, and allergies, Endocrine: Negative for neck swelling, polydipsia, polyuria, polyphagia, and marked weight changes, Hematologic/Lymphatic: Negative for swollen nodes, abnormal bleeding, and unusual bruising. 09:59 MS/extremity: Positive for decreased range of motion, pain, swelling, tenderness, of the dorsal aspect of distal phalanx of right thumb, right villanueva, deep wound 1 cm , no abscess, no dc. Exam: 09:59 Constitutional: This is a well developed, well nourished patient who is awake, alert, vinicio and in no acute distress. Head/Face: Normocephalic, atraumatic. Eyes: Pupils equal round and reactive to light, extra-ocular motions intact. Lids and lashes normal. Conjunctiva and sclera are non-icteric and not injected. Cornea within normal limits. Periorbital areas with no swelling, redness, or edema. ENT: Nares patent. No nasal discharge, no septal abnormalities noted. Tympanic membranes are normal and external auditory canals are clear. Oropharynx with no redness, swelling, or masses, exudates, or evidence of obstruction, uvula midline. Mucous membranes moist. Neck: Trachea midline, no thyromegaly or masses palpated, and no cervical lymphadenopathy. Supple, full range of motion without nuchal rigidity, or vertebral point tenderness. No Meningismus. Chest/axilla: Normal chest wall appearance and motion. Nontender with no deformity. No lesions are appreciated. Cardiovascular: Regular rate and rhythm with a normal S1 and S2. No gallops, murmurs, or rubs. Normal PMI, no JVD. No pulse deficits. Respiratory: Lungs have equal breath sounds bilaterally, clear to auscultation and percussion. No rales, rhonchi or wheezes noted. No increased work of breathing, no retractions or nasal flaring. Abdomen/GI: Soft, non-tender, with normal bowel sounds. No distension or tympany. No guarding or rebound. No evidence of tenderness throughout. Back: No spinal tenderness. No costovertebral tenderness. Full range of motion. Male : Normal genitalia with no discharge or lesions. Skin: Warm, dry with normal turgor. Normal color with no rashes, no lesions, and no evidence of cellulitis. Neuro: Awake and alert, GCS 15, oriented to person, place, time, and situation. Cranial nerves II-XII grossly intact. Motor strength 5/5 in all extremities. Sensory grossly intact. Cerebellar exam normal. Normal gait. Psych: Awake, alert, with orientation to person, place and time. Behavior, mood, and affect are within normal limits. 09:59 Musculoskeletal/extremity: ROM: limited active range of motion due to pain, limited passive range of motion due to pain, in the dorsal aspect of distal phalanx of right thumb, dorsal aspect of proximal phalanx of right thumb, palmar aspect of distal phalanx of right thumb and palmar aspect of proximal phalanx of right thumb, Circulation is intact in all extremities. Sensation intact. Compartment Syndrome exam of affected extremity: is normal. DVT Exam: negative Homans' sign noted on exam, no appreciated bluish discoloration, no erythema, pain, swelling, tenderness, erythema, that is mild, of the dorsal aspect of distal phalanx of right thumb. Vital Signs: 09:38 BP 122 / 73; Pulse 60; Resp 16 S; Temp 98.7(O); Pulse Ox 100% on R/A; Pain 5/10; aa5 11:30 BP 111 / 87; Pulse 64; Resp 15 S; Pulse Ox 100% on R/A; ca1 Procedures: 09:59 I \T\ D: Incision and drainage was performed for an abscess of the right Prepped with [facility] Betadine, Anesthetized with 2 ml's 1% Lidocaine. Incised with #11 blade. Drained small amount. Splinting: Splint applied to dorsal aspect of distal phalanx of right thumb using bulky dress. applied by nurse. bulky dress. MDM: 09:41 Patient medically screened. [facility] 09:59 Data reviewed: vital signs, nurses notes, radiologic studies, plain films. Data [facility] interpreted: surveillance system monitor: not applicable for this patient encounter. rate is 60 beats/min, rhythm is regular, Pulse oximetry: on room air is 100 %. Test interpretation: by ED physician or midlevel provider: plain radiologic studies. Counseling: I had a detailed discussion with the patient and/or guardian regarding: the historical points, exam findings, and any diagnostic results supporting the discharge/admit diagnosis, lab results, the need for outpatient follow up, for definitive care, a hand specialist. ED course: explained importance of hand doc follow up. 10:59 Differential diagnosis: abscess, cellulitis. ED course: close follow advised, pt will vinicio do. 11/23 09:58 Order name: Hand Right 3 View XRAY [facility] 11/23 09:45 Order name: Wound dressing; Complete Time: 09:50 aa5 11/23 10:09 Order name: Dressing - Wound; Complete Time: 11:21 [facility] 11/23 10:09 Order name: Gloves, Sterile; Complete Time: 11:21 [facility] 11/23 10:09 Order name: Setup Suture Tray; Complete Time: : [facility] Administered Medications: 10:00 Drug: Bactroban Ointment 2 % 1 application {Note: administered to right villanueva and right aa5 thumb .} Route: Topical; Site: wound; 10:00 Drug: Doxycycline 200 mg Route: PO; aa5 10:00 Drug: Bactrim (160 mg-800 mg (DS) 1 tablet Route: PO; aa5 11:21 Drug: Lidocaine (1 %) 3 ml {Note: MD Kobe.} Volume: 20 ml; Route: Infiltration; ca1 Disposition: 11/24/19 11:00 Discharged to Home. Impression: Cellulitis and acute lymphangitis of other parts of limb - right thumb, Laceration without foreign body, right lower leg - deep open subacute avulsion. - Condition is Stable. - Discharge Instructions: Laceration Care, Adult, Cellulitis, Adult, [id number], Laceration Care, Adult, [id number]. - Prescriptions for Bactroban 2 % Topical Ointment - Apply to affected area 1 application by TOPICAL route every 12 hours; 30 gram. Doxycycline Hyclate 100 mg Oral Tablet - take 1 tablet by ORAL route every 12 hours; 20 tablet. Bactrim DS 800- 160 mg Oral Tablet - take 1 tablet by ORAL route every 12 hours for 10 days; 20 tablet. - Medication Reconciliation Form, Thank You Letter, Antibiotic Education, Prescription Opioid Use form. - Follow up: Private Physician; When: 2 - 3 days; Reason: Recheck today's complaints, Continuance of care, Re-evaluation by your physician. Follow up: Vignesh Farooq; When: 2 - 3 days; Reason: Recheck today's complaints, Continuance of care, Re-evaluation by your physician. - Problem is new. - Symptoms have improved. Signatures: Dispatcher [employer] EDMS Samson Bullock MD MD cha Calderon, Audri, RN RN aa5 Shannon Pichardo RN RN ca1 Corrections: (The following items were deleted from the chart) 11:44 11:00 11/24/2019 11:00 Discharged to Home. Impression: Cellulitis and acute ca1 lymphangitis of other parts of limb - right thumb; Laceration without foreign body, right lower leg - deep open subacute avulsion. Condition is Stable. Discharge Instructions: Laceration Care, Adult, Cellulitis, Adult, [id number], Laceration Care, Adult, [id number]. Prescriptions for Bactroban 2 % Topical Ointment - Apply to affected area 1 application by TOPICAL route every 12 hours; 30 gram, Doxycycline Hyclate 100 mg Oral Tablet - take 1 tablet by ORAL route every 12 hours; 20 tablet, Bactrim DS 800-160 mg Oral Tablet - take 1 tablet by ORAL route every 12 hours for 10 days; 20 tablet. and Forms are Medication Reconciliation Form, Thank You Letter, Antibiotic Education, Prescription Opioid Use. Follow up: Private Physician; When: 2 - 3 days; Reason: Recheck today's complaints, Continuance of care, Re-evaluation by your physician. Follow up: Vignesh Farooq; When: 2 - 3 days; Reason: Recheck today's complaints, Continuance of care, Re-evaluation by your physician. Problem is new. Symptoms have improved. vinicio
--- NOTE | 2019-11-24 11:01 | ER ---
Nurse's Notes [facility] Name: Sean Hoover Age: 19 yrs Sex: Male : 2000 Arrival Date: 11/24/2019 Time: 09:25 Bed 19 Private MD: Diagnosis: Cellulitis and acute lymphangitis of other parts of limb-right thumb;Laceration without foreign body, right lower leg-deep open subacute avulsion Presentation: 11/23 09:38 Chief complaint: Patient states: "a catfish fin got my right thumb on Monday and now aa5 it's red, swollen, and painful". Pt also reports fall 2 weeks ago and laceration to right villanueva. 09:38 Coronavirus screen: Client denies travel out of the [place] in the last 14 days. At this aa5 time, the client does not indicate any symptoms associated with coronavirus-19. Ebola Screen: No symptoms or risks identified at this time. Initial Sepsis Screen: Does the patient meet any 2 criteria? No. Patient's initial sepsis screen is negative. Does the patient have a suspected source of infection? No. Patient's initial sepsis screen is negative. Risk Assessment: Do you want to hurt yourself or someone else? Patient reports no desire to harm self or others. Onset of symptoms was November 2019. 09:38 Acuity: ROCKY 5 aa5 09:38 Method Of Arrival: Ambulatory aa5 Historical: - Allergies: 09:38 No Known Allergies; aa5 - PMHx: 09:38 ADD/ADHD; Anxiety; Autism; mood disorder; aa5 - PSHx: 09:38 None; aa5 - Immunization history:: Last tetanus immunization: < 5 years ago. - Social history:: Smoking status: Patient denies any tobacco usage or history of. - Family history:: not pertinent. Screenin:05 Abuse screen: Denies threats or abuse. Denies injuries from another. Nutritional ca1 screening: No deficits noted. Tuberculosis screening: No symptoms or risk factors identified. Fall Risk None identified. Assessment: 09:38 General: Appears comfortable, Behavior is calm, cooperative. Pain: Complains of pain in aa5 right thumb Pain currently is 5 out of 10 on a pain scale. Quality of pain is described as tender. Neuro: Level of Consciousness is awake, alert, obeys commands, Oriented to person, place, time, situation. Cardiovascular: Patient's skin is warm and dry. Respiratory: Airway is patent Respiratory effort is even, unlabored, Respiratory pattern is regular, symmetrical. GI: No signs and/or symptoms were reported involving the gastrointestinal system. : No signs and/or symptoms were reported regarding the genitourinary system. EENT: No signs and/or symptoms were reported regarding the EENT system. Derm: Skin is pink, warm \\T\\ dry. Laceration that is approximately 0.5cm with mild adjacent redness, appears to be healing. Right thumb is swollen and red with puncture wound noted. Musculoskeletal: Range of motion: intact in all extremities. 10:00 Reassessment: Laceration to right villanueva cleaned with Hibiclens and saline, dressed with aa5 Bactroban and Kerlix. Right thumb cleaned with Hibiclens and saline, dressed with Bactroban. Awaiting for x-ray before dressing to right thumb per Dr. Bullock. . 11:30 Reassessment: Patient appears in no apparent distress at this time. Patient is alert, ca1 oriented x 3, equal unlabored respirations, skin warm/dry/pink. Vital Signs: 09:38 BP 122 / 73; Pulse 60; Resp 16 S; Temp 98.7(O); Pulse Ox 100% on R/A; Pain 5/10; aa5 11:30 BP 111 / 87; Pulse 64; Resp 15 S; Pulse Ox 100% on R/A; ca1 ED Course: 09:25 Patient arrived in ED. as 09:38 Arm band placed on Patient placed in an exam room, on a stretcher. aa5 09:40 Samson Bullock MD is Attending Physician. [facility] 09:44 Sonal Jimenez, PANFILO is Primary Nurse. aa5 09:49 Triage completed. aa5 10:05 Patient has correct armband on for positive identification. Bed in low position. Call ca1 light in reach. Pulse ox on. NIBP on. 10:05 Assist provider with I \\T\\ D: of an abscess on right thumb Set up I\\T\\D tray. Performed by ca 1 Samson Bullock MD Wound packed. iodoform gauze, Dressing with Neosporin and 4X4s, tape Patient tolerated well. 10:05 Patient did not have IV access during this emergency room visit. ca1 10:30 Hand Right 3 View XRAY In Process Unspecified. EDMS 11:00 Vignesh Farooq MD is Referral Physician. [facility] Administered Medications: 10:00 Drug: Bactroban Ointment 2 % 1 application {Note: administered to right villanueva and right aa5 thumb .} Route: Topical; Site: wound; 10:00 Drug: Doxycycline 200 mg Route: PO; aa5 10:00 Drug: Bactrim (160 mg-800 mg (DS) 1 tablet Route: PO; aa5 11:21 Drug: Lidocaine (1 %) 3 ml {Note: MD Kobe.} Volume: 20 ml; Route: Infiltration; ca1 Outcome: 11:00 Discharge ordered by . [facility] 11:43 Discharged to home ambulatory. ca1 11:43 Condition: good 11:43 Discharge instructions given to patient, Instructed on discharge instructions, follow up and referral plans. medication usage, wound care, Demonstrated understanding of instructions, follow-up care, medications, wound care, Prescriptions given X 3. 11:44 Patient left the ED. ca1 Signatures: Dispatcher [employer] EDAK Samson Bullock MD MD cha Martinez, Amelia as Sonal Jimenez, RN RN aa5 Shannon Pichardo RN RN ca1
[2019-11-24] MEDS ORDERED: LIDOCAINE 1% MPF 5 ML VIAL ONE (11:09)
== END 2019-11-24 11:44 | disposition home or self-care (01) ==
LOC: ER 09:23
PROC: 0H9FXZZ Drainage of Right Hand Skin, External Approach (ICD-10-PCS; principal; 2019-11-24)
DX: L03.011 Cellulitis of right finger (principal); L03.021 Acute lymphangitis of right finger; S81.811A Laceration without foreign body, right lower leg, initial encounter
CPT/HCPCS: 99284

== ENCOUNTER 2020-07-30 21:23 | Emergency (ER) | payer BC, MEDICAID ==
--- OUTSIDE RECORDS SUMMARY | 2020-07-30 21:26 | XMS REPORT | Continuity of Care Document ---
:2000 Author Organization [facility] t Address [address] [place] [address] Care Team Providers Name Role Phone Braden DHILLON, Lonny Primary Care Physician Problems This patient has no known problems. Allergies, Adverse Reactions, Alerts This patient has no known allergies or adverse reactions. Social History Social Habit Start Date Stop Date Quantity Comments Source Sex Assigned At [facility] Tobacco use and 2015-12-22 2015-12-22 Never used [facility] ethodist exposure 00:00:00 00:00:00 Alcohol intake 2015-11-21 2015-11-21 Current [facility] - 00:00:00 00:00:00 non-drinker of Medical Ce nter alcohol (finding) Smoking Status Start Date Stop Date Source Never smoker [facility] Medications Ordered Filled Start Stop Current Ordering [...] QD Take 20 mg [facility] m (LEXAPRO) 918 by mouth Meth miryam 20 MG 03:04: daily. st tablet 24 QUEtiapine Yes 100mg Q.5D Take 100 [place] (SEROquel) 9-18 mg by Methodi 100 MG 03:04: mouth 2 st tablet 24 (two) times a day. Takes 150 mg in the morning and 200 mg at bedtime escitalopra 2015- Yes 20mg Take [address] [facility] oxalate 8-20 [facility] (LEXAPRO) 14:29: Medical 20 MG 10 Center tablet guanFACINE 0 Yes Take by [facility] (INTUNIV 8-20 [facility]. [facility] ER) 4 mg 14:29: Medical Tb24 10 [place] QUEtiapine 0 Yes 25mg Take [address] (SEROQUEL) 8-20 by mouth. [facility] - 25 MG 14:29: Medical tablet 10 [place] lisdexamfet Yes 60mg QD Take [address] [facility] amine 7-09 by mouth [facility] - (VYVANSE) 21:23: every Medical 60 MG 02 morning. Center capsule QUEtiapine 0 Yes 200mg QD Take [address] (SEROQUEL) 7-09 mg by [facility] - 200 MG 21:23: mouth Medical tablet 02 nightly. Center Procedures This patient has no known procedures. Plan of Care Planned Activity Planned Date Details Comments Source Future Scheduled 2020-11-01 INFLUENZA VACCINE Rhea adorno [facility] Test 00:00:00 [code = INFLUENZA VACCINE] Future Scheduled 2014 COVID-19 VACCINE (1) Angie colmenares [facility] Test 00:00:00 [code = COVID-19 VACCINE (1)] Results This patient has no known results.
[2020-07-31 00:22] LABS: Urine Blood Negative (Negative); Urine Glucose Negative (Negative); Urine Protein Negative (Negative); Urine Specific Gravity >=1.030 (1.005-1.030); Urine pH 6.5 (5.0-7.0)
[2020-07-31 00:29] LABS: Hematocrit 40.7 % (39.6-49.0); Lymphocytes % 16.1 % (15.3-44.8); MPV 8.4 fL (7.6-11.3); RBC Red Blood Cell Count 4.84 M/uL (4.33-5.43)
[2020-07-31 00:30] LABS: Absolute Lymphocytes (CBC) 1.5 K/uL (0.7-4.9); Basophils % 0.9 % (0-1.3)
[2020-07-31 00:33] LABS: Protime INR 0.97
[2020-07-31 00:48] LABS: Barbiturates NEGATIVE (NEGATIVE); Benzodiazepines NEGATIVE (NEGATIVE); Cocaine NEGATIVE (NEGATIVE); METHAMPHETAM NEGATIVE (NEGATIVE); Methadone NEGATIVE (NEGATIVE); Opiates NEGATIVE (NEGATIVE); Phencyclidine NEGATIVE (NEGATIVE); THC Cannibis POSITIVE (NEGATIVE)
[2020-07-31 00:48] LABS: ALT/SGPT 44 U/L (12-78); AST/SGOT 24 U/L (15-37); Albumin 4.2 g/dL (3.4-5.0); Alkaline Phosphatase 106 U/L (45-117); BUN Blood Urea Nitrogen 10 mg/dL (7-18); Bicarbonate 29 mmol/L (21-32); Bilirubin Direct < 0.1 mg/dL (0-0.2); Bilirubin Total 0.4 mg/dL (0.2-1.0); Glucose Level 101 mg/dL (74-106); Potassium 4.2 mmol/L (3.5-5.1); Protein, Total 7.8 g/dL (6.4-8.2); Sodium Level 140 mmol/L (136-145)
--- NOTE | 2020-07-31 04:14 | EDPHYS ---
Physician Documentation [facility] Name: Sean Hoover Age: 19 yrs Sex: Male : 2000 Arrival Date: 07/30/2020 Time: 21:32 Bed 7 Private MD: ED Physician Ashvin Kaba HPI: 07/31 00:38 This 19 yrs old Male presents to ER via Ambulatory with complaints of Mental mh7 health check. 00:39 The patient presents to the emergency department with suicide ideation, but the patient mh7 has no formulated plan. Onset: The symptoms/episode began/occurred today, at 18:30. Past psychiatric history: Prior diagnosis: bipolar disorder, Psychiatric medications include: Primary psychiatric physician: the patient has not had a prior suicide gesture, the patient does not have a previous inpatient psychiatric history. Associated signs and symptoms: Pertinent negatives: abdominal pain, anxiety, chest pain, chills, delusions, fever, hallucinations, headache, homicidal ideation, nausea, night sweats, palpitations, paranoia, shortness of breath, substance abuse, tremor, vomiting. Severity of symptoms: At their worst the symptoms were moderate today, in the emergency department the symptoms have resolved and did so just prior to arrival. Historical: - Allergies: 07/30 21:58 Morphine; jb4 - Home Meds: 21:58 Unable to obtain [Active]; jb4 - PMHx: 21:58 ADD/ADHD; Anxiety; Autism; mood disorder; jb4 - PSHx: 21:58 None; jb4 - Immunization history:: Adult Immunizations up to date. - Social history:: Smoking status: Patient reports the use of cigarette tobacco products, denies chronic smoking, but will smoke occasionally, cigars, Reported history of juuling and/or vaping. Patient uses street drugs, marijuana, Patient/guardian denies using alcohol. ROS: 07/31 00:39 Constitutional: Negative for fever, chills, and weight loss, Eyes: Negative for injury, mh7 pain, redness, and discharge, ENT: Negative for injury, pain, and discharge, Neck: Negative for injury, pain, and swelling, Cardiovascular: Negative for chest pain, palpitations, and edema, Respiratory: Negative for shortness of breath, cough, wheezing, and pleuritic chest pain, Abdomen/GI: Negative for abdominal pain, nausea, vomiting, diarrhea, and constipation, Back: Negative for injury and pain, : Negative for injury, bleeding, discharge, and swelling, MS/Extremity: Negative for injury and deformity, Skin: Negative for injury, rash, and discoloration, Neuro: Negative for headache, weakness, numbness, tingling, and seizure, Allergy/Immunology: Negative for hives, rash, and allergies, Endocrine: Negative for neck swelling, polydipsia, polyuria, polyphagia, and marked weight changes, Hematologic/Lymphatic: Negative for swollen nodes, abnormal bleeding, and unusual bruising. Exam: 00:39 Constitutional: This is a well developed, well nourished patient who is awake, alert, mh7 and in no acute distress. Head/Face: Normocephalic, atraumatic. Eyes: Pupils equal round and reactive to light, extra-ocular motions intact. Lids and lashes normal. Conjunctiva and sclera are non-icteric and not injected. Cornea within normal limits. Periorbital areas with no swelling, redness, or edema. Neck: Trachea midline, no thyromegaly or masses palpated, and no cervical lymphadenopathy. Supple, full range of motion without nuchal rigidity, or vertebral point tenderness. No Meningismus. Chest/axilla: Normal chest wall appearance and motion. Nontender with no deformity. No lesions are appreciated. Cardiovascular: Regular rate and rhythm with a normal S1 and S2. No gallops, murmurs, or rubs. Normal PMI, no JVD. No pulse deficits. Respiratory: Lungs have equal breath sounds bilaterally, clear to auscultation and percussion. No rales, rhonchi or wheezes noted. No increased work of breathing, no retractions or nasal flaring. Abdomen/GI: Soft, non-tender, with normal bowel sounds. No distension or tympany. No guarding or rebound. No evidence of tenderness throughout. Back: No spinal tenderness. No costovertebral tenderness. Full range of motion. Skin: Warm, dry with normal turgor. Normal color with no rashes, no lesions, and no evidence of cellulitis. MS/ Extremity: Pulses equal, no cyanosis. Neurovascular intact. Full, normal range of motion. Neuro: Awake and alert, GCS 15, oriented to person, place, time, and situation. Cranial nerves II-XII grossly intact. Motor strength 5/5 in all extremities. Sensory grossly intact. Cerebellar exam normal. Normal gait. 00:39 Psych: Behavior/mood is cooperative, Affect is calm, Oriented to person, place, time, Patient has no thoughts/intents to harm self or others. Judgement / Insight is normal. Memory is normal. Delusions/hallucinations are not present. Vital Signs: 07/30 21:53 BP 128 / 75; Pulse 70; Resp 18; Temp 98.1(O); Pulse Ox 100% on R/A; Weight 86.18 kg jb4 (R); Height 6 ft. 0 in. (182.88 cm); Pain 0/10; 07/31 02:08 BP 118 / 74; Pulse 68; Resp 18; Pulse Ox 98% on R/A; wh 07/30 21:53 Body Mass Index 25.77 (86.18 kg, 182.88 cm) jb4 MDM: 04:11 Differential diagnosis: depression, suicidal ideations, substance abuse. Data reviewed: [facility] vital signs, nurses notes, lab test result(s), CBC, electrolytes, urinalysis, urine drug screen, EKG. Data interpreted: Pulse oximetry: on room air is 98 %. Interpretation: normal. Counseling: I had a detailed discussion with the patient and/or guardian regarding: the historical points, exam findings, and any diagnostic results supporting the discharge/admit diagnosis, lab results, the need for outpatient follow up, a psychiatrist, to return to the emergency department if symptoms worsen or persist or if there are any questions or concerns that arise at home. Response to treatment: the patient's symptoms have resolved after treatment, the patient's blood pressure is in an acceptable range, mental status has returned to baseline, the patient no longer shows bradycardia, the patient is not short of breath, the patient is not tachycardic, the patient's pain is gone, the patient's temperature has normalized. 04:14 Patient medically screened. [facility] 07/31 00:03 Order name: Acetaminophen; Complete Time: [facility] 07/31 00:03 Order name: Basic Metabolic Panel; Complete Time: [facility] 07/31 00:03 Order name: CBC with Diff; Complete Time: [facility] 07/31 00:03 Order name: ETOH Level; Complete Time: [facility] 07/31 00:03 Order name: Hepatic Function; Complete Time: 07/31 00:03 Order name: PT-INR; Complete Time: 07/31 00:03 Order name: Ptt, Activated; Complete Time: [facility] 07/31 00:03 Order name: Salicylate; Complete Time: 7 07/31 00:03 Order name: Urine Drug Screen; Complete Time: 07/31 00:03 Order name: EKG; Complete Time: 00: [facility] 07/31 00:03 Order name: EKG - Nurse/Tech; Complete Time: 07/31 00:03 Order name: IV Saline Lock; Complete Time: [facility] 07/31 00:19 Order name: Troponin (emerg Dept Use Only); Complete Time: [facility] 07/31 00:22 Order name: Urine Dipstick-Ancillary; Complete Time: [facility] 07/31 00:03 Order name: Labs collected and sent; Complete Time: [facility] 07/31 00:03 Order name: Suicide Screening ([place]); Complete Time: [facility] 07/31 00:03 Order name: Urine Dipstick-Ancillary (obtain specimen); Complete Time: : [facility] Administered Medications: No medications were administered Disposition: 07/31/20 04:14 Discharged to Home. Impression: Depression. - Condition is Stable. - Discharge Instructions: Major Depressive Disorder, [id number]. - Medication Reconciliation Form, Thank You Letter, Antibiotic Education, Prescription Opioid Use form. - Follow up: Private Physician; When: 1 - 2 days; Reason: Worsening of condition, Recheck today's complaints, Continuance of care, Re-evaluation by your physician. Follow up: Kg Millan MD; When: 1 - 2 days; Reason: Worsening of condition, Recheck today's complaints. - Problem is an ongoing problem. - Symptoms are resolved. Signatures: Dispatcher [employer] EDHarvey Carlin RN RN jb4 Johnathan Jim RN RN mg2 Ashvin Kaba MD MD mh7 Corrections: (The following items were deleted from the chart) 00:41 00:39 The patient presents to the emergency department with suicide ideation, mh7 mh7 04:27 04:14 07/31/2020 04:14 Discharged to Home. Impression: Depression. Condition is Stable. mg2 Forms are Medication Reconciliation Form, Thank You Letter, Antibiotic Education, Prescription Opioid Use. Follow up: Private Physician; When: 1 - 2 days; Reason: Worsening of condition, Recheck today's complaints, Continuance of care, Re-evaluation by your physician. Follow up: Kg Millan; When: 1 - 2 days; Reason: Worsening of condition, Recheck today's complaints. Problem is an ongoing problem. Symptoms are resolved. mh7
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
[2020-07-31 04:37] VITALS: TEMP 98.1
[2020-07-31 04:38] VITALS: BP 118/74; O2SAT 98
--- NOTE | 2020-08-01 07:25 | EKG ---
Test Date: 2020-07-31 Test Time: 00:11:20 Patient Relations Coordinator: MG MEASUREMENT RESULTS: Intervals: Rate: 66 [place]: 130 QRSD: 100 QT: 396 QTc: 415 [place]: P: 38 [place]: 130 QRS: 90 T: 29 INTERPRETIVE STATEMENTS: Sinus rhythm with marked sinus arrhythmia Rightward axis Cannot rule out Anterior infarct, age undetermined Abnormal ECG No previous ECG available for comparison Electronically Signed On 08-01-20 07:22:21 CDT by Tavo Cota
== END 2020-07-31 04:27 | disposition home or self-care (01) ==
LOC: ER 21:23
DX: F32.9 Major depressive disorder, single episode, unspecified (principal); F17.210 Nicotine dependence, cigarettes, uncomplicated; F90.9 Attention-deficit hyperactivity disorder, unspecified type; F84.0 Autistic disorder; F41.9 Anxiety disorder, unspecified
CPT/HCPCS: 36415; 80048; 80076; 80307; 80320; 80329; 81003; 84484; 85025; 85610; 85730; 93005; 99284

== ENCOUNTER 2020-08-06 14:45 | Emergency (ER) | payer BC, MEDICAID ==
--- OUTSIDE RECORDS SUMMARY | 2020-08-06 14:48 | XMS REPORT | Continuity of Care Document ---
:2000 Author Organization [facility] t Address [address] [place] [address] Care Team Providers Name Role Phone Braden DHILLON, Lonny Primary Care Physician [phone] Problems This patient has no known problems. Allergies, Adverse Reactions, Alerts This patient has no known allergies or adverse reactions. Social History Social Habit Start Date Stop Date Quantity Comments Source Sex Assigned At [facility] Tobacco use and 2015-12-22 2015-12-[address] [facility] [place] ethodist exposure 00:00:00 00:00:00 Alcohol intake 2015-11-21 2015-11-21 Current [facility] - 00:00:00 00:00:00 non-drinker of Medical Ce nter alcohol (finding) Smoking Status Start Date Stop Date Source Never smoker [facility] Medications Ordered Filled Start Stop Current [...] ER) 4 mg 14:29: Medical Tb24 10 [place] QUEtiapine 0 Yes 25mg Take [address] (SEROQUEL) 8-20 by mouth. Luke s - 25 MG 14:29: Medical tablet 10 [place] lisdexamfet Yes 60mg QD Take 60 mg [...] Future Scheduled 2020-11-01 INFLUENZA VACCINE Rhea adorno [employer] 00:00:00 [code = INFLUENZA VACCINE] Future Scheduled 2014 COVID-19 VACCINE (1) Angie colmenares [employer] Test 00:00:00 [code = COVID-19 VACCINE (1)] Results This patient has no known results.
--- NOTE | 2020-08-06 16:15 | RAD REPORT ---
EXAM DESCRIPTION: CT - Head Brain Wo Cont - 08/06/2020 3:47 pm CLINICAL HISTORY: Headache status post injury COMPARISON: None. TECHNIQUE: Computed axial tomography of the head was obtained. IV contrast was not requested. All CT scans are performed using dose optimization technique as appropriate and may include automated exposure control or mA/KV adjustment according to patient size. FINDINGS: An intracranial bleed is not seen . The ventricles are normal in caliber. No extra-axial fluid collection is noted. Fluid within the sinuses/ mastoids is not seen. IMPRESSION: No acute intracranial abnormality is seen. If patient's symptoms persist MRI of the bra in would be recommended.
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
[2020-08-06 17:03] VITALS: TEMP 98.4
[2020-08-06 17:04] VITALS: O2SAT 100
[2020-08-06 17:06] VITALS: BP 110/70
== END 2020-08-06 16:57 | disposition home or self-care (01) ==
LOC: ER 14:45
DX: S09.90XA Unspecified injury of head, initial encounter (principal); W50.0XXA Accidental hit or strike by another person, initial encounter; Z88.5 Allergy status to narcotic agent; F39 Unspecified mood [affective] disorder; F17.210 Nicotine dependence, cigarettes, uncomplicated
CPT/HCPCS: 70450; 99283

== ENCOUNTER 2020-09-20 20:19 | Emergency (ER) | payer BC, MEDICAID ==
--- OUTSIDE RECORDS SUMMARY | 2020-09-20 20:22 | XMS REPORT | Continuity of Care Document ---
:2000 Author Organization [facility] t Address [address] [place] [address] Care Team Providers Name Role Phone Braden DHILLON, Lonny Primary Care Physician [phone] Problems This patient has no known problems. Allergies, Adverse Reactions, Alerts This patient has no known allergies or adverse reactions. Social History Social Habit Start Date Stop Date Quantity Comments Source Sex Assigned At [facility] Alcohol intake 2015-11-21 2015-11-21 Current [facility] es - 00:00:00 00:00:00 non-drinker of Medical Ce nter alcohol (finding) Smoking Status Start Date Stop Date Source Never smoker [facility] Medications Ordered Filled Start Stop Current Ordering Indication Dosage Frequency Signature Comments Components Source Medication Medication Date Date Medication? Clinician (SIG) Name Name escitalopra Yes 20mg Take 20 mg [facility] oxalate 8-20 [facility] mouth. [facility] - (LEXAPRO) 14:29: Medical 20 MG 10 [place] tablet guanFACINE Yes Take by [facility] (INTUNIV 8-20 mouth. [facility] - ER) 4 mg 14:29: Medical Tb24 10 [place] QUEtiapine Yes 25mg Take [address] (SEROQUEL) 8-20 by mouth. [facility] - 25 MG 14:29: Medical tablet 10 [place] lisdexamfet Yes 60mg QD Take [address] amine 7-09 by mouth [facility] - (VYVANSE) 21:23: every Medical 60 MG 02 morning. [place] capsule QUEtiapine Yes 200mg QD Take [address] (SEROQUEL) 7-09 mg by [facility] - 200 MG 21:23: mouth Medical tablet 02 nightly. Center Procedures This patient has no known procedures. Results This patient has no known results.
--- NOTE | 2020-09-20 21:38 | RAD REPORT ---
EXAM DESCRIPTION: RAD - Hand Right 3 View - 09/20/2020 8:59 pm CLINICAL HISTORY: PAIN, blunt force trauma COMPARISON: Hand Right 3 View dated 11/24/2019 FINDINGS: No fracture is identified. There is no dislocation or periosteal reaction noted. No forei gn body or significant soft tissue abnormality. IMPRESSION: Negative right hand examination.
--- NOTE | 2020-09-20 21:51 | ER ---
Nurse's Notes [facility] Name: Sean Hoover Age: 20 yrs Sex: Male : 2000 Arrival Date: 09/20/2020 Time: 20:22 Bed 7 [facility] MD: Diagnosis: Contusion of hand Presentation: 09/20 20:27 Chief complaint: Patient states: Pt reports he dropped a cinder block on his right hand ea at work about 20 minutes ago. Coronavirus screen: At this time, the client does not indicate any symptoms associated with coronavirus-19. Ebola Screen: No symptoms or risks identified at this time. Initial Sepsis Screen: Does the patient meet any 2 criteria? No. Patient's initial sepsis screen is negative. Does the patient have a suspected source of infection? No. Patient's initial sepsis screen is negative. Risk Assessment: Do you want to hurt yourself or someone else? Patient reports no desire to harm self or others. Onset of symptoms. 20:27 Method Of Arrival: Ambulatory ea 20:27 Acuity: ROCKY 4 ea Triage Assessment: 20:32 General: Appears in no apparent distress. Behavior is appropriate for age. Pain: ea Complains of pain in dorsal aspect of middle phalanx of right index finger, dorsal aspect of proximal phalanx of right index finger, dorsal aspect of middle phalanx of right middle finger and dorsal aspect of proximal phalanx of right middle finger. Neuro: Level of Consciousness is awake, alert, obeys commands, Oriented to person, place, time. Musculoskeletal: Swelling present in dorsal aspect of proximal phalanx of right index finger and dorsal aspect of proximal phalanx of right middle finger. Injury Description: Abrasion sustained to dorsal aspect of middle phalanx of right index finger and dorsal aspect of middle phalanx of right middle finger. Historical: - Allergies: 20:32 Morphine; ea - PMHx: 20:32 mood disorder; Bipolar disorder; Autism; Anxiety; ADD/ADHD; ea - PSHx: 20:32 None; ea - Immunization history:: Adult Immunizations up to date. - Social history:: Smoking status: unknown. Screenin:31 Abuse screen: Denies threats or abuse. Nutritional screening: No deficits noted. ea Tuberculosis screening: No symptoms or risk factors identified. 20:45 Fall Risk None identified. jb4 Assessment: 20:45 General: Appears in no apparent distress. comfortable, Behavior is calm, cooperative, jb4 appropriate for age. Pain: Complains of pain in dorsum of right hand Pain does not radiate. Pain currently is 5 out of 10 on a pain scale. Neuro: Level of Consciousness is awake, alert, obeys commands, Oriented to person, place, time, situation. Cardiovascular: Patient's skin is warm and dry. Respiratory: Airway is patent Respiratory effort is even, unlabored, Respiratory pattern is regular, symmetrical. GI: No signs and/or symptoms were reported involving the gastrointestinal system. : No signs and/or symptoms were reported regarding the genitourinary system. EENT: No signs and/or symptoms were reported regarding the EENT system. Derm: Skin is intact, Skin is pink, warm \T\ dry. Musculoskeletal: Circulation, motion, and sensation intact. Range of motion: intact in all extremities. 22:00 Reassessment: Patient appears in no apparent distress at this time. Patient and/or jb4 family updated on plan of care and expected duration. Pain level reassessed. Patient is alert, oriented x 3, equal unlabored respirations, skin warm/dry/pink. Vital Signs: 20:27 BP 137 / 85; Pulse 63; Resp 18; Temp 98.5; Pulse Ox 98% ; Weight 90.72 kg; Height 6 ft. ea (182.88 cm); Pain 0/10; 21:45 BP 111 / 61; Pulse 56; Resp 16; Pulse Ox 99% on R/A; jb4 20:27 Body Mass Index 27.12 (90.72 kg, 182.88 cm) ED Course: 20:22 Patient arrived in ED. cf2 20:31 Triage completed. ea 20:38 Costa Suarez PA is PHCP. jmm 20:38 Ashvin Kaba MD is Attending Physician. jmm 20:39 Gisela Betancourt, PANFILO is Primary Nurse. lp1 20:45 Patient has correct armband on for positive identification. Bed in low position. Call jb4 light in reach. Side rails up X 1. Pulse ox on. NIBP on. 20:59 XRAY Hand RIGHT 3 View In Process Unspecified. EDMS 21:32 Harvey Remy, RN is Primary Nurse. jb4 22:01 Orthoglass splint: Volar splint applied on right arm. oe 22:07 No provider procedures requiring assistance completed. Patient did not have IV access jb4 during this emergency room visit. Administered Medications: No medications were administered Outcome: 21:50 Discharge ordered by . preet 22:07 Discharged to home ambulatory. jb4 22:07 Condition: stable 22:07 Discharge instructions given to patient, Instructed on discharge instructions, follow up and referral plans. Demonstrated understanding of instructions, follow-up care. 22:08 Patient left the ED. jb4 Signatures: Dispatcher [employer] EDMS Costa Suarez PA PA jmm Pena, Laura, RN RN lp1 Harvey Remy RN RN jb4 Gene Garcia Elena RN RN Kimberly Mei cf2 Corrections: (The following items were deleted from the chart) 20:33 20:27 Acuity: ROCKY 3 ea ea
--- NOTE | 2020-09-20 21:51 | EDPHYS ---
Physician Documentation [facility] Name: Sean Hoover Age: 20 yrs Sex: Male : 2000 Arrival Date: 09/20/2020 Time: 20:22 Bed 7 Private MD: ED Physician Ashvin Kaba HPI: 09/20 21:03 This 20 yrs old Male presents to ER via Ambulatory with complaints of Hand jmm Injury, Hand Pain, Laceration To Hand. 21:03 Onset: The symptoms/episode began/occurred acutely, just prior to arrival. Modifying jmm factors: The symptoms are alleviated by nothing, the symptoms are aggravated by nothing. This is a 20 year old male with a history of autism that presents to the ED with complaints of right hand pain after a cinder block fell on it. Denies other injury. patient is UTD on tetanus immunization. . Historical: - Allergies: 20:32 Morphine; ea - PMHx: 20:32 mood disorder; Bipolar disorder; Autism; Anxiety; ADD/ADHD; ea - PSHx: 20:32 None; ea - Immunization history:: Adult Immunizations up to date. - Social history:: Smoking status: unknown. ROS: 21:03 Constitutional: Negative for fever, chills, and weight loss, Cardiovascular: Negative jmm for chest pain, palpitations, and edema, Respiratory: Negative for shortness of breath, cough, wheezing, and pleuritic chest pain. 21:03 MS/extremity: Positive for injury or acute deformity. 21:03 All other systems are negative. Exam: 21:03 Constitutional: This is a well developed, well nourished patient who is awake, alert, jmm and in no acute distress. Head/Face: atraumatic. Eyes: EOMI, no conjunctival erythema appreciated ENT: Moist Mucus Membranes Neck: Trachea midline, Supple Chest/axilla: Normal chest wall appearance and motion. Cardiovascular: Regular rate and rhythm. No edema appreciated Respiratory: Normal respirations, no respiratory distress appreciated Abdomen/GI: Non distended, soft Back: Normal ROM 21:03 Skin: abrasion noted to the right hand, right 2nd metacarpal ttp, compartments are soft, NVI. 21:03 Neuro: Orientation: is normal, Mentation: is normal, Memory: is normal. 21:03 Psych: Behavior/mood is pleasant, cooperative. Vital Signs: 20:27 BP 137 / 85; Pulse 63; Resp 18; Temp 98.5; Pulse Ox 98% ; Weight 90.72 kg; Height 6 ft. ea (182.88 cm); Pain 0/10; 21:45 BP 111 / 61; Pulse 56; Resp 16; Pulse Ox 99% on R/A; jb4 20:27 Body Mass Index 27.12 (90.72 kg, 182.88 cm) MDM: 21:02 Patient medically screened. [facility] 21:49 Data reviewed: vital signs, nurses notes. Counseling: I had a detailed discussion with preet the patient and/or guardian regarding: the historical points, exam findings, and any diagnostic results supporting the discharge/admit diagnosis, radiology results, the need for outpatient follow up, to return to the emergency department if symptoms worsen or persist or if there are any questions or concerns that arise at home. ED course: Patient advised to follow up with pcp and otherwise given strict return precautions. Patient understood and agrees with the plan of care. . 09/20 20:26 Order name: XRAY Hand RIGHT 3 View; Complete Time: 21:49 09/20 21:02 Order name: Misc. Order: volar splint; Complete Time: 22:00 [facility] 09/20 21:03 Order name: Wound Care; Complete Time: 21:33 [facility] Administered Medications: No medications were administered Disposition: 09/21 04:17 Co-signature as Attending Physician, Ashvin Kaba MD. [email or web address] Disposition: 09/20/20 21:50 Discharged to Home. Impression: Contusion of hand. - Condition is Stable. - Discharge Instructions: Abrasion, Contusion. - Medication Reconciliation Form, Thank You Letter, Antibiotic Education, Prescription Opioid Use form. - Follow up: Private Physician; When: 2 - 3 days; Reason: Recheck today's complaints, Continuance of care, Re-evaluation by your physician. Signatures: Dispatcher [employer] EDMS Costa Suarez PA PA Harvey Mora RN RN jb4 Jessica Reed RN RN ea Holmes, Maurice, MD MD [email or web address] Corrections: (The following items were deleted from the chart) 09/20 22:08 21:50 09/20/2020 21:50 Discharged to Home. Impression: Contusion of hand. Condition is jb4 Stable. Forms are Medication Reconciliation Form, Thank You Letter, Antibiotic Education, Prescription Opioid Use. Follow up: Private Physician; When: 2 - 3 days; Reason: Recheck today's complaints, Continuance of care, Re-evaluation by your physician. preet
[2020-09-20 22:22] VITALS: TEMP 98.5
[2020-09-20 22:23] VITALS: BP 111/61; O2SAT 99
== END 2020-09-20 22:08 | disposition home or self-care (01) ==
LOC: ER 20:19
DX: S60.221A Contusion of right hand, initial encounter (principal); W22.8XXA Striking against or struck by other objects, initial encounter; Z88.5 Allergy status to narcotic agent
CPT/HCPCS: 99283

== ENCOUNTER 2020-10-18 23:03 | Emergency (ER) | payer BC, MEDICAID ==
--- OUTSIDE RECORDS SUMMARY | 2020-10-18 23:07 | XMS REPORT | Continuity of Care Document ---
:2000 Author Organization [facility] t Address [address] [place] [address] Care Team Providers Name Role Phone Braden DHILLON, H. Primary Care Physician Problems This patient has no known problems. Allergies, Adverse Reactions, Alerts This patient has no known allergies or adverse reactions. Social History Social Habit Start Date Stop Date Quantity Comments Source Tobacco use and 2015-12-22 2015-12-22 Never used [facility] ethodist exposure 00:00:00 00:00:00 Alcohol intake 2015-12-22 2015-12-22 Current [facility] thodist 00:00:00 00:00:00 non-drinker of alcohol (finding) Sex Ass[birth year] At [birth year] [facility] ethodist 00:00:00 00:00:00 Smoking Status Start Date Stop Date Source [facility] Medic[facility] Ordered Filled Start Stop Current Ordering [...] 60mg QD Take 60 mg [place] amine 18 by mouth [facility] (VYVANSE) 03:04: every st 60 MG 24 morning. capsule escitalopra Yes 20mg QD Take 20 mg [facility] (LEXAPRO) 9-18 by mouth Meth miryam 20 MG 03:04: daily. st tablet 24 QUEtiapine 2016 Yes 100mg Q.5D Take 100 [place] (SEROquel) 9-18 mg by [facility] 100 MG 03:04: mouth 2 st tablet 24 (two) times a day. Takes 150 mg in the morning and 200 mg at bedtime escitalopra 2015- Yes 20mg Take [address] [facility] oxalate 8-20 [facility]. [facility] - (LEXAPRO) 14:29: Medical 20 MG 10 [place] tablet guanFACINE Yes Take by [facility] (INTUNIV 8-20 mouth. [facility] - ER) 4 mg 14:29: Medical Tb24 10 [place] QUEtiapine 0 Yes 25mg Take [address] (SEROQUEL) 8-20 by mouth. [facility] - 25 MG 14:29: Medical tablet 10 [place] lisdexamfet Yes 60mg QD Take [address] amine 7-09 by mouth [facility] - (VYVANSE) 21:23: every Medical 60 MG 02 morning. Center capsule QUEtiapine Yes 200mg QD Take [address] (SEROQUEL) 7-09 mg by [facility] - 200 MG 21:23: mouth [facility] tablet 02 nightly. Center Procedures This patient has no known procedures. Plan of Care Planned Activity Planned Date Details Comments Source Future Scheduled 2020-11-01 INFLUENZA VACCINE [facility] 00:00:00 [code = INFLUENZA VACCINE] Future Scheduled 2010 COVID-19 VACCINE (1) Angie colmen[facility] 00:00:00 [code = COVID-19 VACCINE (1)] Results This patient has no known results.
[2020-10-19 01:32] LABS: Urine Blood Negative (Negative); Urine Glucose Negative (Negative); Urine Protein 1+ (Negative); Urine Specific Gravity >=1.030 (1.005-1.030)
[2020-10-19] MEDS ORDERED: NA CHLORIDE 0.9% 1,000 ML ONE (01:37)
[2020-10-19 01:52] LABS: Absolute Lymphocytes (CBC) 1.4 K/uL (0.7-4.9); BUN Blood Urea Nitrogen 9 mg/dL (7-18); Basophils % 0.3 % (0-1.3); Bicarbonate 26 mmol/L (21-32); Glucose Level 103 mg/dL (74-106); Hematocrit 40.7 % (39.6-49.0); Lymphocytes % 17.7 % (15.3-44.8); MPV 9.6 fL (7.6-11.3); Potassium 3.6 mmol/L (3.5-5.1); RBC Red Blood Cell Count 4.83 M/uL (4.33-5.43); Sodium Level 143 mmol/L (136-145)
[2020-10-19 01:57] LABS: Barbiturates NEGATIVE (NEGATIVE); Benzodiazepines NEGATIVE (NEGATIVE); Cocaine NEGATIVE (NEGATIVE); METHAMPHETAM NEGATIVE (NEGATIVE); Methadone NEGATIVE (NEGATIVE); Opiates NEGATIVE (NEGATIVE); Phencyclidine NEGATIVE (NEGATIVE); THC Cannibis POSITIVE (NEGATIVE)
--- NOTE | 2020-10-19 02:46 | ER ---
Nurse's Notes [facility] Name: Sean Hoover Age: 20 yrs Sex: Male : 2000 Arrival Date: 10/18/2020 Time: 23:06 Bed 8 Private MD: Diagnosis: Myalgia Presentation: 10/18 23:34 Chief complaint: Patient states: was working out in the sun all day and is complaining em of weakness and body aches. Coronavirus screen: Client denies travel out of the [place] in the last 14 days. Ebola Screen: Patient negative for fever greater than or equal to 101.5 degrees Fahrenheit, and additional compatible Ebola Virus Disease symptoms Patient denies exposure to infectious person. Patient denies travel to an Ebola-affected area in the 21 days before illness onset. No symptoms or risks identified at this time. Initial Sepsis Screen: Does the patient meet any 2 criteria? No. Patient's initial sepsis screen is negative. Does the patient have a suspected source of infection? No. Patient's initial sepsis screen is negative. Risk Assessment: Do you want to hurt yourself or someone else? Patient reports no desire to harm self or others. Onset of symptoms was October 18, 2020. 23:34 Method Of Arrival: Wheelchair em 23:34 Acuity: ROCKY 3 em Triage Assessment: 10/19 01:08 General: Appears in no apparent distress. Behavior is calm, cooperative. Pain: Denies ak2 pain. Derm: No deficits noted. Historical: - Allergies: 10/18 23:35 Morphine; em - Home Meds: 10/19 01:10 Concerta 72 mg Oral tr24 1 tab once daily [Active]; Depakote 500 mg Oral TbEC 1 tab ak2 once daily [Active]; Lexapro 20 mg Oral tab 1 tab once daily [Active]; Seroquel 100 mg Oral tab 1 tab nightly [Active]; - PMHx: 10/18 23:35 ADD/ADHD; Anxiety; Autism; Bipolar disorder; mood disorder; em - PSHx: 23:35 None; em - Immunization history:: Adult Immunizations up to date. - Social history:: Smoking status: Patient reports the use of cigarette tobacco products, smokes one pack cigarettes per day. Screenin/19 01:10 Abuse screen: Denies threats or abuse. Denies injuries from another. Nutritional ak2 screening: No deficits noted. Tuberculosis screening: No symptoms or risk factors identified. Fall Risk None identified. Assessment: 01:09 General: Appears in no apparent distress. Pain: Denies pain. Neuro: No deficits noted. ak2 Cardiovascular: No deficits noted. Respiratory: No deficits noted. 02:33 Reassessment: Patient and/or family updated on plan of care and expected duration. Pain ak2 level reassessed. Vital Signs: 10/18 23:34 BP 131 / 66; Pulse 77; Resp 16; Temp 98.8(O); Pulse Ox 100% on R/A; Weight 90.72 kg; em Height 6 ft. 0 in. (182.88 cm); Pain 0/10; 10/19 01:09 BP 124 / 64; Pulse 71; Resp 16; Pulse Ox 98% on R/A; ak2 02:33 BP 115 / 72; Pulse 65; Resp 16; Pulse Ox 97% on R/A; ak2 10/18 23:34 Body Mass Index 27.12 (90.72 kg, 182.88 cm) em ED Course: 10/18 23:06 Patient arrived in ED. cf2 23:35 Triage completed. em 23:35 Arm band placed on. em 10/19 01:04 Marv Arevalo MD is Attending Physician. pkl 01:10 Patient has correct armband on for positive identification. ak2 01:10 No provider procedures requiring assistance completed. ak2 03:16 IV discontinued. ak2 Administered Medications: 01:15 Drug: NS 0.9% 1000 ml Route: IV; Rate: 1000 ml; Site: left antecubital; ak2 Outcome: 02:46 Discharge ordered by . pkl 03:16 Discharged to home ambulatory. ak2 03:16 Condition: good 03:16 Discharge instructions given to patient. 03:17 Patient left the ED. ak2 Signatures: Marv Arevalo MD MD pkl Mauro Ramos RN RN Kimberly Elizalde cf2 Mati Roberto ak2
--- NOTE | 2020-10-19 02:47 | EDPHYS ---
Physician Documentation [facility] Name: Sean Hoover Age: 20 yrs Sex: Male : 2000 Arrival Date: 10/18/2020 Time: 23:06 Bed 8 Private MD: ED Physician Marv Arevalo HPI: 10/19 02:18 This 20 yrs old Male presents to ER via Wheelchair with complaints of Heat pkl Exposure, HAS SHAKES, Weakness, Headache. 02:18 Patient complained of generalized body aches, weakness and headache. Onset: The pkl symptoms/episode began/occurred today. Patient said he has been working out in the sun all day. Historical: - Allergies: 10/18 23:35 Morphine; em - Home Meds: 10/19 01:10 Concerta 72 mg Oral tr24 1 tab once daily [Active]; Depakote 500 mg Oral TbEC 1 tab ak2 once daily [Active]; Lexapro 20 mg Oral tab 1 tab once daily [Active]; Seroquel 100 mg Oral tab 1 tab nightly [Active]; - PMHx: 10/18 23:35 ADD/ADHD; Anxiety; Autism; Bipolar disorder; mood disorder; em - PSHx: 23:35 None; em - Immunization history:: Adult Immunizations up to date. - Social history:: Smoking status: Patient reports the use of cigarette tobacco products, smokes one pack cigarettes per day. ROS: 10/19 02:18 Eyes: Negative for injury, pain, redness, and discharge, ENT: Negative for injury, pkl pain, and discharge, Neck: Negative for injury, pain, and swelling, Cardiovascular: Negative for chest pain, palpitations, and edema, Respiratory: Negative for shortness of breath, cough, wheezing, and pleuritic chest pain, Abdomen/GI: Negative for abdominal pain, nausea, vomiting, diarrhea, and constipation, Back: Negative for injury and pain, : Negative for injury, bleeding, discharge, and swelling, MS/Extremity: Negative for injury and deformity, Skin: Negative for injury, rash, and discoloration. Neuro: Positive for headache, weakness. Exam: 02:21 Head/Face: Normocephalic, atraumatic. Eyes: Pupils equal round and reactive to light, pkl extra-ocular motions intact. Lids and lashes normal. Conjunctiva and sclera are non-icteric and not injected. Cornea within normal limits. Periorbital areas with no swelling, redness, or edema. ENT: Nares patent. No nasal discharge, no septal abnormalities noted. Tympanic membranes are normal and external auditory canals are clear. Oropharynx with no redness, swelling, or masses, exudates, or evidence of obstruction, uvula midline. Mucous membranes moist. Neck: Trachea midline, no thyromegaly or masses palpated, and no cervical lymphadenopathy. Supple, full range of motion without nuchal rigidity, or vertebral point tenderness. No Meningismus. Chest/axilla: Normal chest wall appearance and motion. Nontender with no deformity. No lesions are appreciated. Cardiovascular: Regular rate and rhythm with a normal S1 and S2. No gallops, murmurs, or rubs. Normal PMI, no JVD. No pulse deficits. Respiratory: Lungs have equal breath sounds bilaterally, clear to auscultation and percussion. No rales, rhonchi or wheezes noted. No increased work of breathing, no retractions or nasal flaring. Abdomen/GI: Soft, non-tender, with normal bowel sounds. No distension or tympany. No guarding or rebound. No evidence of tenderness throughout. Back: No spinal tenderness. No costovertebral tenderness. Full range of motion. Skin: Warm, dry with normal turgor. Normal color with no rashes, no lesions, and no evidence of cellulitis. MS/ Extremity: Pulses equal, no cyanosis. Neurovascular intact. Full, normal range of motion. Neuro: Awake and alert, GCS 15, oriented to person, place, time, and situation. Cranial nerves II-XII grossly intact. Motor strength 5/5 in all extremities. Sensory grossly intact. Cerebellar exam normal. Normal gait. Vital Signs: 10/18 23:34 BP 131 / 66; Pulse 77; Resp 16; Temp 98.8(O); Pulse Ox 100% on R/A; Weight 90.72 kg; em Height 6 ft. 0 in. (182.88 cm); Pain 0/10; 10/19 01:09 BP 124 / 64; Pulse 71; Resp 16; Pulse Ox 98% on R/A; ak2 02:33 BP 115 / 72; Pulse 65; Resp 16; Pulse Ox 97% on R/A; ak2 10/18 23:34 Body Mass Index 27.12 (90.72 kg, 182.88 cm) em MDM: 01:04 Patient medically screened. pkl 02:41 Data reviewed: vital signs, nurses notes, lab test result(s). pkl 02:44 ED course: Discussed lab results with patient. Advised to follow up with PCP in 1 to 2 pkl days. Patient understood instructions. 10/19 01:09 Order name: CBC with Diff pkl 10/19 01:09 Order name: Chem 7 pkl 10/19 01:09 Order name: UDS; Complete Time: 02:22 pkl 10/19 01:11 Order name: CBC with Automated Diff; Complete Time: 03:55 EDMS 10/19 01:11 Order name: Basic Metabolic Panel; Complete Time: 02:22 EDMS 10/19 01:31 Order name: Urine Dipstick-Ancillary; Complete Time: 02:22 EDMS 10/19 02:18 Order name: Manual Differential; Complete Time: 03:55 EDMS Administered Medications: 01:15 Drug: NS 0.9% 1000 ml Route: IV; Rate: 1000 ml; Site: left antecubital; ak2 Disposition Summary: 10/19/20 02:46 Discharge Ordered Location: Home pkl Problem: new pkl Symptoms: have improved pkl Condition: Stable pkl Diagnosis - Myalgia pkl Followup: pkl - With: Private Physician - When: 1 - 2 days - Reason: Re-evaluation by your physician Discharge Instructions: - Discharge Summary Sheet pkl Forms: - Work release form pkl - Medication Reconciliation Form pkl - Thank You Letter pkl - Antibiotic Education pkl - Prescription Opioid Use pkl Signatures: Dispatcher [employer] Marv Chapman MD MD pkl Mauro Ramos, RN RN em Mati Roberto ak2
[2020-10-19 03:11] LABS: Blood Morphology Comment NOT SEEN (NOT SEEN); Platelet Estimate ADEQ
[2020-10-19 03:22] VITALS: TEMP 98.8
[2020-10-19 03:25] VITALS: BP 115/72; O2SAT 97
== END 2020-10-19 03:17 | disposition home or self-care (01) ==
LOC: ER 23:03
DX: M79.10 Myalgia, unspecified site (principal); F17.210 Nicotine dependence, cigarettes, uncomplicated; F31.9 Bipolar disorder, unspecified; Z88.5 Allergy status to narcotic agent
CPT/HCPCS: 85025; 80048; 36415; 81003; 80307; 99283; J7030

== ENCOUNTER 2024-03-12 09:42 | Emergency (ER) | payer BC, OTHER ==
[2024-03-12 11:12] LABS: SARS-CoV-2 Antigen CONTROL BLUE LINE VIS/BG OK; SARS-CoV-2 Antigen Rapid Res Negative (Negative)
--- NOTE | 2024-03-12 11:40 | RAD REPORT ---
EXAMINATION: TWO VIEW CHEST XR CLINICAL INDICATION: Male, 23 years old. [facility] MAIN Cough;Congestion Bed Name: 4 TECHNIQUE: 2 view radiographs of the chest were performed. COMPARISON: No prior exam. FINDINGS: The lungs are well inflated and clear. No pneumothorax or sizable effusion. The heart is normal in si ze. Mediastinal contours are unremarkable. IMPRESSION: No acute or significant abnormalities.
--- NOTE | 2024-03-12 12:12 | EDPHYS ---
Physician Documentation [facility] Name: Sean Hoover Age: 23 yrs Sex: Male : 2000 Arrival Date: 03/12/2024 Time: 09:42 Bed DX3 Private MD: ED Physician Abdirashid Olmstead HPI: 03/12 10:27 This 23 yrs old Male presents to ER via Ambulatory with complaints of Flu Symptoms. ms3 10:27 23 year old male presents to the Emergency Department via [facility] reporting ms3 illness for the past 10 days following attendance at a [employer] [facility]. Initially, the symptoms resembled a common cold but have intensified over the past 3 days. The patient reports experiencing chills and fever during this period.. Historical: - Allergies: 10:22 Morphine; ss - PMHx: 10:22 ADD/ADHD; Anxiety; Autism; Bipolar disorder; mood disorder; ss - Immunization history:: Client reports receiving the 2nd dose of the Covid vaccine. - Infectious Disease History:: Denies. - Social history:: Smoking status: Reported history of juuling and/or vaping. ROS: 10:27 Cardiovascular: Negative for chest pain, and palpitations. Respiratory: Negative for ms3 shortness of breath, cough, wheezing, and pleuritic chest pain, Abdomen/GI: Negative for abdominal pain, nausea, vomiting, diarrhea, and constipation, MS/Extremity: Negative for injury and deformity, 10:27 Constitutional: Positive for chills, fever, 10:27 ENT: Positive for nasal discharge, sinus congestion, Exam: 10:27 Constitutional: This is a well developed, well nourished patient who is awake, alert, ms3 and in no acute distress. Head/Face: Normocephalic, atraumatic. Chest/axilla: Normal chest wall appearance and motion. Nontender with no deformity. Cardiovascular: Regular rate and rhythm with a normal S1 and S2. No gallops, murmurs, or rubs. Normal PMI, no JVD. No pulse deficits. Respiratory: Lungs have equal breath sounds bilaterally, clear to auscultation and percussion. No rales, rhonchi or wheezes noted. No increased work of breathing, no retractions or nasal flaring. Abdomen/GI: Soft, non-tender, with normal bowel sounds. No distension or tympany. No guarding or rebound. No evidence of tenderness throughout. Skin: Warm, dry with normal turgor. Normal color with no rashes, no lesions, and no evidence of cellulitis. Vital Signs: 10:21 BP 131 / 94; Pulse 65; Resp 15; Temp 98.6(O); Pulse Ox 98% on R/A; Weight 62.6 kg; ss Height 6 ft. 0 in. ; Pain 6/10; 12:07 BP 133 / 79 RA Sitting; Pulse 68; Temp 96.6; Pulse Ox 95% on R/A; sa1 10:21 Body Mass Index 18.72 (62.60 kg, 182.88 cm) ss 10:21 Pain Scale: Adult ss MDM: 10:18 Medical Screening Exam initiated ms3 10:27 Differential diagnosis: flu, URI, PNA. ms3 15:21 Data reviewed: vital signs, nurses notes, lab test result(s), and as a result, I will ms3 discharge patient. I considered the following discharge prescriptions or medication management in the emergency department Medications were administered in the Emergency Department. See MAR. Counseling: I had a detailed discussion with the patient and/or guardian regarding the historical points, exam findings, and any diagnostic results supporting the discharge/admit diagnosis, lab results, radiology results, the need for outpatient follow up, to return to the emergency department if symptoms worsen or persist or if there are any questions or concerns that arise at home. Special discussion: I discussed with the patient/guardian in detail that at this point there is no indication for admission to the hospital. It is understood, however, that if the symptoms persist or worsen the patient needs to return immediately for re-evaluation. ED course: Discussed negative chest x-ray, negative flu, COVID with patient. Patient to follow-up with Dr. Machado in 2 to 3 days. Patient understands and agrees with plan. All questions were answered. Return precautions discussed include worsening symptoms, or any other concerns.. 03/12 10:03 Order name: Flu; Complete Time: 11:21 ms3 03/12 10:03 Order name: SARS RAPID; Complete Time: 11:21 ms3 12 10:18 Order name: Chest Pa And Lat (2 Views) XRAY; Complete Time: 12:02 ms3 Administered Medications: 10:24 Not Given (pt last took motrin at 0930 Disposition: 16:11 Chart complete. ms3 Disposition Summary: 03/12/24 12:11 Discharge Ordered Notes: Location: Home ms3 Condition: Stable ms3 Diagnosis - Acute upper respiratory infection, unspecified ms3 Followup: ms3 - With: Cayden Machado DO - When: 2 - 3 days - Reason: Recheck today's complaints Discharge Instructions: - Discharge Summary Sheet ms3 - Upper Respiratory Infection, Adult ms3 Forms: - Medication Reconciliation Form ms3 - Antibiotic Education ms3 - Prescription Opioid Use ms3 - Patient Portal Instructions ms3 - Leadership Thank You Letter ms3 Prescriptions: - Claritin 10 mg Oral Tablet - take 1 tablet ORAL route once daily As needed; 30 tablet; Refills: 0, Product ms3 Selection Permitted - benzonatate 200 mg Oral capsule - take 1 capsule ORAL route 3 times per day as needed; 20 capsule; Refills: 0, ms3 Product Selection Permitted Signatures: Dispatcher [employer] EDMS Tracy Figueroa RN RN Abdirashid James DO DO ms3 Corrections: (The following items were deleted from the chart) 10:04 10:04 Influenza Screen (A \T\ B)+BA.LAB.BRZ ordered. EDMS EDMS 10:04 10:04 SARS-COV-2 Antigen Rapid+I.LAB.BRZ ordered. EDMS EDMS 10:22 10:22 Social history: Smoking status: Patient reports the use of cigarette tobacco ss products, smokes one-half pack cigarettes per day, ss
--- NOTE | 2024-03-12 12:12 | ER ---
Nurse's Notes [facility] Name: Sean Hoover Age: 23 yrs Sex: Male : 2000 Arrival Date: 03/12/2024 Time: 09:42 Bed DX3 Private MD: Diagnosis: Acute upper respiratory infection, unspecified Presentation: 03/12 10:21 Chief complaint: Patient states: cough, body aches and not feeling well x 10 days. ss Coronavirus screen: Client denies travel out of the [place] in the last 14 days. Ebola Screen: Patient denies exposure to infectious person. Patient denies travel to an Ebola-affected area in the 21 days before illness onset. Initial Sepsis Screen: Does the patient meet any 2 criteria? No. Patient's initial sepsis screen is negative. Does the patient have a suspected source of infection? No. Patient's initial sepsis screen is negative. Risk Assessment: Do you want to hurt yourself or someone else? Patient reports no desire to harm self or others. Onset of symptoms was March 03, 2024. 10:21 Method Of Arrival: Ambulatory ss 10:21 Acuity: ROCKY 3 ss Historical: - Allergies: 10:22 Morphine; ss - PMHx: 10:22 ADD/ADHD; Anxiety; Autism; Bipolar disorder; mood disorder; ss - Immunization history:: Client reports receiving the 2nd dose of the Covid vaccine. - Infectious Disease History:: Denies. - Social history:: Smoking status: Reported history of juuling and/or vaping. Screenin:38 Abuse screen: Denies threats or abuse. Denies injuries from another. Nutritional ss screening: No deficits noted. Tuberculosis screening: Never had TB. Assessment: 12:38 Reassessment: Patient appears in no apparent distress at this time. Patient and/or ss family updated on plan of care and expected duration. Pain level reassessed. Vital Signs: 10:21 BP 131 / 94; Pulse 65; Resp 15; Temp 98.6(O); Pulse Ox 98% on R/A; Weight 62.6 kg; ss Height 6 ft. 0 in. ; Pain 6/10; 12:07 BP 133 / 79 RA Sitting; Pulse 68; Temp 96.6; Pulse Ox 95% on R/A; sa1 10:21 Body Mass Index 18.72 (62.60 kg, 182.88 cm) ss 10:21 Pain Scale: Adult ss ED Course: 09:48 Patient arrived in ED. mr 10:03 Abdirashid Olmstead DO is Attending Physician. ms3 10:22 Triage completed. ss 10:22 Arm band placed on right wrist. ss 10:37 Chest Pa And Lat (2 Views) XRAY In Process Unspecified. EDMS 12:11 Cayden Machado DO is Referral Physician. ms3 12:38 Tracy Figueroa, PANFILO is Primary Nurse. ss 12:38 No provider procedures requiring assistance completed. Patient did not have IV access ss during this emergency room visit. Administered Medications: 10:24 Not Given (pt last took motrin at 0930 Outcome: 12:11 Discharge ordered by MD. ms3 12:38 Discharged to home ambulatory, ss 12:38 Condition: good 12:38 Discharge instructions given to patient, Instructed on discharge instructions, follow up and referral plans. medication usage, Demonstrated understanding of instructions, follow-up care, medications, Prescriptions given X 2, 12:38 Patient left the ED. ss Signatures: Dispatcher [employer] EDCT Sophia Hager, Reg Reg mr Tracy Figueroa, RN RN ss Abdirashid Olmstead DO DO ms3 Sultan Asif sa1 Corrections: (The following items were deleted from the chart) 10:22 10:22 Social history: Smoking status: Patient reports the use of cigarette tobacco ss products, smokes one-half pack cigarettes per day, ss
[2024-03-12 12:45] VITALS: BP 133/79; TEMP 96.6; O2SAT 95
== END 2024-03-12 12:38 | disposition home or self-care (01) ==
LOC: ER 09:42
DX: J06.9 Acute upper respiratory infection, unspecified (principal); F84.0 Autistic disorder; Z11.52 Encounter for screening for COVID-19
CPT/HCPCS: 36415; 71046; 87804; 87811; 99283